=== PATIENT | male | born 1935 | race African-American/Black ===

== ENCOUNTER 2019-09-28 08:18 | Inpatient (IN) | payer MEDICARE ==
[~2019-09-28] VITALS: Ht 182.9 cm; Wt 63.0 kg
--- NOTE | 2019-09-28 08:20 | NUR ---
ED Nurse Note: Patient was BIBA from [facility] due to SOB. Patient presented anxious, AAO x4, with breathing treatment on, BP 163/63, other VSS at this time.
[2019-09-28] MEDS ORDERED: Nitroglycerin Subl 0.4mg tab SL STA (08:22)
[2019-09-28 08:25] VITALS: BP 194/72
[2019-09-28] MEDS ORDERED: Nitroglycerin 2% oint pkt TOPIC ONE (08:30)
--- NOTE | 2019-09-28 08:30 | Emergency Room Report ---
History of Present Illness General Chief Complaint: Dyspnea/Respdistress Source: Patient, EMS Present Illness HPI EMS were called to the half-way facility. The patient started having shortness of breath for 1/2-hour. Encountered wheezing. Albuterol was administered. The patient is doing somewhat better. He denies chest pain at this time. The patient recently had a pacemaker placed. Patient has a distant history of a stroke. The patient has a distant history of smoking. No fevers, chills, sore throat, palpitations, nausea, vomiting, diarrhea, dysuria, abdominal pain, joint pain, rashes, depression, anxiety, visual changes , dizziness, headache. Allergies: Coded Allergies: No Known Allergies (Unverified , 09/28/19) Patient History Past Medical History: see triage record Past Surgical History: pacemaker Social History: Denies: smoking - Distant, alcohol use, drug use Social History Narrative [facility] - born in [place] Reviewed Nursing Documentation: PMH: Agreed; PSxH: Agreed Nursing Documentation-PMH Hx Cardiac Problems: Yes - HF Hx Hypertension: Yes Hx COPD: Yes Hx Diabetes: Yes - Type 2 Hx Gastrointestinal Problems: No - Anemia Hx Cerebrovascular Accident: Yes Review of Systems All Other Systems: negative except mentioned in HPI Physical Exam Vital Signs Date Time Temp Pulse Resp B/P (MAP) Pulse Ox O2 Delivery O2 Flow Rate FiO2 09/28/19 08:12 97.5 76 18 194/72 (112) 97 Room Air Sp02 EP Interpretation: reviewed, normal General Appearance: no apparent distress, GCS 15, non-toxic, Chronically Ill Head: normocephalic Eyes: bilateral eye normal inspection, bilateral eye PERRL, bilateral eye EOMI ENT: moist mucus membranes Neck: supple Respiratory: crackles, rales, other - Pacemaker left chest Cardiovascular #1: regular rate, rhythm, no edema, JVD - Mid neck on exhalation Cardiovascular #2: 2+ radial (L) Gastrointestinal: normal inspection, normal bowel sounds, non tender, no mass, other - Slightly protuberant Genitourinary: no CVA tenderness Musculoskeletal: back normal, normal range of motion, other - osteoarthritis Neurologic: alert, motor strength/tone normal, oriented - X2, sensory intact, speech normal, other - facial assymmetry Psychiatric: mood/affect normal Skin: no rash, warm/dry, other - Recent pacemaker scar Procedures Critical Care Time Critical Care Time Total Critical Care Time: 30 min bedside evaluation and treatment excludes procedures (EKG). Reason for critical care: Congestive heart failure, positive troponin, hypertension, repeat evaluations Possible complications: hypotension, hypertension, MD, shock, arrhythmias, metabolic acidosis, end organ damage, respiratory failure. Interventions: Nitrates, Lasix, aspirin, repeat evaluations Course: Patient presented with hypertension and dyspnea with a history of congestive heart failure. Immediate treatment with nitrates and Lasix. Lab called with positive troponin. Aspirin administered. Blood pressure improved and patient improved clinically. Some hypoxia and oxygen begun. Patient pain- free. Consultations: nursing staff, EMS, admitting physician Performed by: Dr. Akers Tolerated well condition = serious Medical Decision Making Diagnostic Impression: Primary Impression: Congestive heart failure Qualified Codes: I50.23 - Acute on chronic systolic (congestive) heart failure Additional Impressions: Elevated troponin Renal insufficiency Cardiac asthma ER Course Patient presents with shortness of breath with wheezing the field and hypertension. Differential includes acute myocardial infarction, congestive heart failure, COPD exacerbation, pneumonia amongst others. Evaluation with EKG , chest x-ray and labs. Patient is placed on a surveillance system monitor. Nitroglycerin paste and nitroglycerin sublingually ordered. In addition Lasix ordered. Wheezing has improved with albuterol in the field. Hypertension needs to be closely monitored and treated. EKG sinus arrhythmia first-degree AV block nonspecific ST-T wave changes with ST inversion inferiorly and laterally suggestion of LVH. CXR CHF and effusions. Leukocytosis without left shift. Renal insufficiency. No evidence of infection at this time. Antibiotics not indicated. Called for + troponin. Aspirin given. Patient denies pain. O2 sat 88% but NAD. Oxygen begun. Patient improved with treatment. Some diuresis. Patient admitted to stepdown unit. Laboratory Tests Test 09/28/19 08:35 09/28/19 11:00 09/28/19 15:00 09/28/19 18:45 White Blood Count 12.4 K/UL (4.8-10.8) H Red Blood Count 3.41 M/UL (4.70-6.10) L Hemoglobin 10.5 G/DL (14.2-18.0) L Hematocrit 31.9 % (42.0-52.0) L Mean Corpuscular Volume 94 FL (80-99) Mean Corpuscular Hemoglobin 30.7 PG (27.0-31.0) Mean Corpuscular Hemoglobin Concent 32.8 G/DL (32.0-36.0) Red Cell Distribution Width 14.3 % (11.6-14.8) Platelet Count 187 K/UL (150-450) Mean Platelet Volume 6.2 FL (6.5-10.1) L Neutrophils (%) (Auto) 78.9 % (45.0-75.0) H Lymphocytes (%) (Auto) 13.4 % (20.0-45.0) L Monocytes (%) (Auto) 6.1 % (1.0-10.0) Eosinophils (%) (Auto) 1.3 % (0.0-3.0) Basophils (%) (Auto) 0.4 % (0.0-2.0) Sodium Level 145 MMOL/L (136-145) Potassium Level 4.5 MMOL/L (3.5-5.1) Chloride Level 109 MMOL/L (98-107) H Carbon Dioxide Level 23 MMOL/L (21-32) Anion Gap 13 mmol/L (5-15) Blood Urea Nitrogen 42 mg/dL (7-18) H Creatinine 1.9 MG/DL (0.55-1.30) H Estimate Glomerular Filtration Rate 41.1 mL/min (>60) Glucose Level 140 MG/DL (74-106) H Calcium Level 9.5 MG/DL (8.5-10.1) Total Bilirubin 0.4 MG/DL (0.2-1.0) Aspartate Amino Transferase (AST) 35 U/L (15-37) Alanine Aminotransferase (ALT) 28 U/L (12-78) Alkaline Phosphatase 64 U/L (46-116) Total Creatine Kinase 55 U/L (26-308) Troponin I 0.151 ng/mL (0.000-0.056) 0.205 ng/mL (0.000-0.056) 0.271 ng/mL (0.000-0.056) Pro-B-Type Natriuretic Peptide 05181 pg/mL (0-125) H Total Protein 7.5 G/DL (6.4-8.2) Albumin 2.2 G/DL (3.4-5.0) L Globulin 5.3 g/dL Albumin/Globulin Ratio 0.4 (1.0-2.7) L Prothrombin Time 10.5 SEC (9.30-11.50) Prothrombin Time INR 1.0 (0.9-1.1) Activated Partial Thromboplast Time 25 SEC (23-33) Urine Color Pale yellow Urine Appearance Clear Urine pH 7 (4.5-8.0) Urine Specific [place] 1.010 (1.005-1.035) Urine Protein 3+ (NEGATIVE) H Urine Glucose (UA) Negative (NEGATIVE) Urine Ketones Negative (NEGATIVE) Urine Blood Negative (NEGATIVE) Urine Nitrite Negative (NEGATIVE) Urine Bilirubin Negative (NEGATIVE) Urine Urobilinogen Normal MG/DL (0.0-1.0) Urine Leukocyte Esterase Negative (NEGATIVE) Urine RBC 0-2 /HPF (0 - 0) H Urine WBC 0-2 /HPF (0 - 0) Urine Squamous Epithelial Cells None /LPF (NONE/OCC) Urine Bacteria Few /HPF (NONE) EKG Diagnostic Results Rate: normal Rhythm: NSR ST Segments: no acute changes - Sinus arrhythmia first-degree AV block nonspecific ST-T wave changes Rhythm Strip Diag. Results EP Interpretation: yes Rhythm: NSR, no PVC's, no ectopy Chest X-Ray Diagnostic Results Chest X-Ray Diagnostic Results : Chest X-Ray Ordered: Yes # of Views/Limited/Complete: 1 View Indication: Shortness of Breath EP Interpretation: Yes Interpretation: no pneumothorax, other - Pacer congestive failure with bilateral effusions Impression: Other Electronically Signed by: Electronically signed by Johan Akers MD Last Vital Signs Date Time Temp Pulse Resp B/P (MAP) Pulse Ox O2 Delivery O2 Flow Rate FiO2 09/28/19 18:53 142/89 09/28/19 18:52 87 09/28/19 12:00 98.2 23 95 09/28/19 11:28 Nasal Cannula 2.0 Status: improved Disposition: ADMITTED INPATIENT Condition: Serious Johan Akers MD Sep 28, 2019 08:30
--- NOTE | 2019-09-28 08:52 | NUR ---
ED Nurse Note: Patient arrived with Nitro patch (1 inch) on, pt's BP 163/63, per Dr. Akers's order placed second Nitro patch 1 inch.
[2019-09-28 09:08] LABS: BASOPHILS % (AUTO) 0.4 % (0.0-2.0); EOSINOPHILS % (AUTO) 1.3 % (0.0-3.0); HEMATOCRIT 31.9 % (42.0-52.0); HEMOGLOBIN 10.5 G/DL (14.2-18.0); LYMPHOCYTES % (AUTO) 13.4 % (20.0-45.0); MEAN CORPUSCULAR VOLUME 94 FL (80-99); MONOCYTES % (AUTO) 6.1 % (1.0-10.0); NEUTROPHILS % (AUTO) 78.9 % (45.0-75.0); PLATELET COUNT 187 K/UL (150-450); RED BLOOD COUNT 3.41 M/UL (4.70-6.10); RED CELL DISTRIBUTION WIDTH 14.3 % (11.6-14.8); WHITE BLOOD COUNT 12.4 K/UL (4.8-10.8)
[2019-09-28 09:12] LABS: ANION GAP 13 mmol/L (5-15); BLOOD UREA NITROGEN 42 mg/dL (7-18); CALCIUM 9.5 MG/DL (8.5-10.1); CARBON DIOXIDE 23 MMOL/L (21-32); CHLORIDE 109 MMOL/L (98-107); CREATININE 1.9 MG/DL (0.55-1.30); POTASSIUM 4.5 MMOL/L (3.5-5.1); SODIUM 145 MMOL/L (136-145)
--- NOTE | 2019-09-28 09:17 | NUR ---
ED Nurse Note: Patient's O2 went down to 88%, placed patient on 2 L via NC.
[2019-09-28 09:19] LABS: ALANINE AMINOTRANSFERASE 28 U/L (12-78); ALBUMIN 2.2 G/DL (3.4-5.0); ALBUMIN/GLOBULIN RATIO 0.4 (1.0-2.7); ALKALINE PHOSPHATASE 64 U/L (46-116); ASPARTATE AMINO TRANSFERASE 35 U/L (15-37); BILIRUBIN,TOTAL 0.4 MG/DL (0.2-1.0); CREATINE KINASE 55 U/L (26-308)
--- NOTE | 2019-09-28 10:16 | Diagnostic Imaging Report ---
EXAM: XR Chest, 1 View CLINICAL HISTORY: DYSPNEA TECHNIQUE: Frontal view of the chest. COMPARISON: None FINDINGS: Hardware: None. Lungs/pleura: Right greater than left pleural effusions. Bibasilar atelectasis versus pneumonia. Pulmonary vasculature congestion and edema. Heart/mediastinum: Mild enlargement of the cardiomediastinal silhouette. Atherosclerotic calcifications in the aorta. Left-sided pacemaker. Soft tissues: Unremarkable. Bones: No acute fracture. Degenerative changes of the acromioclavicular joints and spine. Upper abdomen: Normal. IMPRESSION: Right greater than left pleural effusions. Bibasilar atelectasis versus pneumonia. Pulmonary vasculature congestion and edema.
[2019-09-28] MEDS ORDERED: BENADRYL25 MG ORAL (10:37)
[2019-09-28] MEDS ORDERED: AMLODIPINE BESYL5 MG ORAL (10:37)
[2019-09-28] MEDS ORDERED: CATAPRES0.1 MG ORAL (10:37)
[2019-09-28] MEDS ORDERED: INSULIN LI100 UNIT/1 SQ (10:37)
[2019-09-28] MEDS ORDERED: IPRATROPIU0.2 MG/1 M HHN (10:37)
[2019-09-28] MEDS ORDERED: ALBUTEROL2.5 MG/3 M INH (10:37)
[2019-09-28] MEDS ORDERED: FUROSEMIDE40 MG ORAL (10:37)
[2019-09-28] MEDS ORDERED: LACTULOSE20 GM/301 ORAL (10:37)
[2019-09-28] MEDS ORDERED: NORCO 5-325 TA1 EACH ORAL (10:37)
[2019-09-28] MEDS ORDERED: GUAIFENESI100 MG/5 M ORAL (10:37)
[2019-09-28] MEDS ORDERED: COLACE100 MG ORAL (10:37)
[2019-09-28] MEDS ORDERED: ACETAMINOPHEN325 M1 ORAL ×2 (10:37)
[2019-09-28] MEDS ORDERED: FEOSOL1 TAB ORAL (10:37)
--- NOTE | 2019-09-28 10:58 | NUR ---
ED Nurse Note: Patient was admited to SDU du to CHF, +trop. Patient was transfered to the unit via gurney by ACLS protocol, with all belongins. Patient AAO x4, VSS at this time, IV accsess on R thumb 22ga.
--- NOTE | 2019-09-28 11:00 | NUR ---
NURSE NOTES: Admitted patient from ED. Placed comfortably in bed. Belongings checked. On nasal cannula at 2LPM. will admit to SDU level of care.
[2019-09-28] MEDS ORDERED: NITRO-BID30 GM TD (11:37)
[2019-09-28 12:00] VITALS: BP 178/83
[2019-09-28] MEDS ORDERED: MYLANTA MAXIMU355 ML PO (12:07)
[2019-09-28] MEDS ORDERED: ZOFRAN4 M1 ORAL (12:08)
--- NOTE | 2019-09-28 13:00 | NUR ---
NURSE NOTES: Dr. Bartlett in the unit. Informed regarding WBC level. With no new order at this time.
[2019-09-28] MEDS ORDERED: Albuterol ud Inhalation HHN PRN (13:15)
[2019-09-28] MEDS ORDERED: guaiFENesin 100mg/5ml Liq ud ORAL PRN (13:15)
[2019-09-28] MEDS ORDERED: Lactulose 20gm/30ml UDC ORAL PRN (13:15)
[2019-09-28] MEDS ORDERED: Ipratropium 0.02% Inh Soln 2.5ml UD HHN PRN (13:15)
[2019-09-28] MEDS ORDERED: DiphenhydrAMINE 25mg Tab ORAL PRN (13:15)
[2019-09-28] MEDS ORDERED: HYDROcodone/Acetamin 5/325 tab ORAL PRN (13:15)
[2019-09-28] MEDS ORDERED: Albuterol/Ipratropium 3ml neb HHN PRN (13:45)
[2019-09-28] MEDS: Nitroglycerin 2% oint pkt TOPIC SCH ×2 (14:31→22:33)
[2019-09-28 15:00] VITALS: BP 142/89
--- NOTE | 2019-09-28 15:22 | NUR ---
NURSE NOTES: Venous Duplex Scan done at bedside. negative results noted for DVT.
--- NOTE | 2019-09-28 15:32 | Diagnostic Imaging Report ---
EXAM: US Duplex Bilateral Lower Extremities Veins CLINICAL HISTORY: DVT TECHNIQUE: Real-time duplex ultrasound scan of the bilateral lower extremity veins integrating B-mode two-dimensional vascular structure, Doppler spectral analysis, color flow Doppler imaging and compression. COMPARISON: No relevant prior studies available. FINDINGS: Right deep veins: Unremarkable as visualized. Normal compression and normal response to augmentation. Right superficial veins: Unremarkable as visualized. Left deep veins: Unremarkable as visualized. Normal compression and normal response to augmentation. Left superficial veins: Unremarkable as visualized. Soft tissues: No critical stenosis, occlusion, or aneurysm. IMPRESSION: No bilateral lower extremity DVT.
[2019-09-28 16:00] VITALS: BP 152/73
[2019-09-28 16:18] LABS: APPEARANCE,URINE CLEAR; BILIRUBIN, URINE NEGATIVE (NEGATIVE); COLOR,URINE PALE YELLOW; GLUCOSE, URINE (UA) NEGATIVE (NEGATIVE); KETONES,URINE NEGATIVE (NEGATIVE); LEUKOCYTE ESTERASE ,URINE NEGATIVE (NEGATIVE); NITRITE,URINE NEGATIVE (NEGATIVE); PH,URINE 7 (4.5-8.0); PROTEIN,URINE 3+ (NEGATIVE); UROBILINOGEN,URINE NORMAL MG/DL (0.0-1.0)
--- NOTE | 2019-09-28 17:40 | NUR ---
NURSE NOTES: Dr. Nguyen at bedside. Informed MD regarding rhythm strips within the shift. And that patient have pacemaker.
[2019-09-28] MEDS ORDERED: Docusate 100mg cap ORAL SCH (18:00)
--- NOTE | 2019-09-28 19:05 | NUR ---
NURSE NOTES: Pt report received from JOSH GONZALEZ. pt remains stable. pt is alert and oriented times 3, able to follow commands. pt is on 2 L NC, no signs symptoms of resp distress. pt is awake overnight monitor showing SR, no signs symptoms of acute cardiac distress. pt bed is low, locked, armed, bed rails up times 3, call light within reach. will follow plan of care.
--- NOTE | 2019-09-28 19:25 | NUR ---
HAND-OFF: Report given to Reilly Simeon RN.
--- NOTE | 2019-09-28 19:29 | NUR ---
NURSE NOTES: Spoke with Roberta GONZALEZ from [facility]. asked about any information on pts pace maker. she is unable to find any information about pace maker.
[2019-09-28 20:00] VITALS: BP 163/82
--- NOTE | 2019-09-28 20:19 | NUR ---
NURSE NOTES: Spoke with Drew Pharmacist. stated to obtain A and D oint from central supply.
[2019-09-28] MEDS: Docusate 100mg cap ORAL SCH (20:35)
[2019-09-28] MEDS: Vitamin A&D Oint Tube TOPIC SCH (20:37)
[2019-09-28] MEDS: Heparin 5000 units/ml inj SUBQ SCH (20:37)
--- NOTE | 2019-09-28 21:00 | History and Physical Report ---
DATE OF ADMISSION: 09/28/2019 REASON FOR ADMISSION: Chest pain and elevated troponin, possible non-STEMI. HISTORY OF PRESENT ILLNESS: The patient is an 84-year-old male, presents from a [facility]. The patient is noted to have some shortness of breath with noted wheezing. Albuterol given. The patient denies any chest pain at that time. The patient apparently had a recent pacemaker placed. History of mild stroke. The patient was noted to have elevated troponin and now admitted for possible non-STEMI. EKG with left ventricular hypertrophy. Chest x-ray noted CHF and effusions. The patient's care discussed and reviewed with the ER physician as well as with the nursing staff. Orders are being given. X-ray notable for pleural effusions and pulmonary vascular congestion. The patient now being admitted for ongoing management and further evaluation. PAST MEDICAL HISTORY: Notable for heart failure, COPD, diabetes, CVA per history, pacemaker per history. MEDICATIONS: Reviewed. ALLERGIES: Reviewed. SOCIAL HISTORY: Resides at a [facility] facility. Nonsmoker and nondrinker. REVIEW OF SYSTEMS: Difficult to obtain. The patient is somewhat confused. PHYSICAL EXAMINATION: GENERAL: A well-developed male, comfortable, advanced age. VITAL SIGNS: Blood pressure 163/63, 99 sat on 2 liters, heart rate 78, temperature 97.5. HEENT: Negative. Extraocular movements are grossly intact. NECK: Supple. LUNGS: Moderate breath sounds, reduced at both bases. CARDIAC: S1 and S2. Regular rate and rhythm. Slightly distant. Positive S4. ABDOMEN: Soft, nontender, and nondistended. EXTREMITIES: Mild edema. NEUROLOGIC: weak diffusely and confused. LABORATORY AND DIAGNOSTIC DATA: Laboratory data reviewed. BUN 42, creatinine 1.9. Troponin 0.205. BNP 10,667. White count 12.4, hemoglobin 10.5, platelets of 187. Chest x-ray with bilateral pleural effusions. IMPRESSION: 1. Congestive heart failure. 2. Pleural effusion. 3. Mild leukocytosis. 4. Anemia. 5. Chronic kidney disease. 6. Elevated troponin. 7. Possible non-STEMI. 8. Elevated natriuretic peptide. 9. Severe protein-calorie malnutrition. RECOMMENDATIONS: 1. Supportive care. 2. IV Lasix. 3. Serial troponins. 4. Cardiology evaluation and hold on antibiotics for now. 5. Monitor fluids and consider thoracentesis. 6. Obtain swallow evaluation and monitor closely for further changes, interventions, and stabilize and monitor in REMEDIOS for now. 7. The plan is to discharge the patient back to [facility] facility once improved. Jarod Bartlett M.D. DR: DAVID JOB#: [id number] CC: AMILCAR
--- NOTE | 2019-09-28 22:26 | NUR ---
NURSE NOTES: Pt BS finger is 147. pt remains stable.
--- NOTE | 2019-09-28 23:00 | Consultation ---
DATE OF CONSULTATION: 09/28/2019 NEPHROLOGY CONSULTATION CONSULTING PHYSICIAN: Gregory Naranjo M.D. REFERRING PHYSICIAN: Jarod Bartlett M.D. REASON FOR CONSULTATION: Elevated BUN and creatinine. HISTORY OF PRESENT ILLNESS: The patient is an 84-year-old male, who presents with shortness of breath and chest x-ray findings of pleural effusion, CHF, possible pneumonia. He has come from a [facility] and there is a history of prior DC and combined systolic and diastolic congestive heart failure, type 2 diabetes, anemia, chronic kidney disease, permanent pacemaker, history of CVA, difficulty walking, history of hypertension. He apparently was hospitalized at [facility] from 09/24/2019 to 09/26/2019 and again became acutely short of breath. He had a non-ST elevation MT at [facility] recently. ALLERGIES: None known. MEDICATIONS: Reviewed on the transfer record, as follows, Tylenol p.r.n., albuterol inhalation, amlodipine, Benadryl, clonidine, DSS, ferrous sulfate, furosemide, guanfacine, Buhler, insulin sliding scale, DuoNeb inhalation, magnesium, Mylanta, nitroglycerin, Senokot, Zofran. HABITS: He is a former smoker. PAST SURGICAL HISTORY: Include pacemaker, appendectomy, tonsillectomy, prostate cancer surgery, and cataract surgery. SYSTEM REVIEW: HEAD, EYES, EARS, NOSE, AND THROAT: He says his vision is stable now. Hearing is good. ENDOCRINE: History of diabetes as above. PULMONARY: History of COPD. CARDIAC: See history of present illness. He is not complaining of chest pain at this time. GASTROINTESTINAL: Denies GI bleeding or abdominal pain. GENITOURINARY: States he is voiding well. No urinary retention or difficulty at this time. He states he received radiation for prostate cancer. NEUROLOGIC: No history of CVA. PHYSICAL EXAMINATION: GENERAL: The patient is alert, well developed, looks younger than his stated age. VITAL SIGNS: Blood pressure 178/83, pulse ox 95, heart rate 85, temperature 98.2. HEAD, EYES, EARS, NOSE AND THROAT: Sclerae are nonicteric. Ocular motions intact in all directions. Oral mucosa moist. NECK: No adenopathy or thyroid enlargement. LUNGS: Clear at this time. HEART: Rhythm is regular. I hear no murmur. ABDOMEN: Soft without organomegaly or masses. EXTREMITIES: No edema, cyanosis, or clubbing. PERTINENT LABS: Show sodium 145, potassium 4.5, BUN 42, creatinine 1.9, estimated GFR 41. Troponin 0.151, 0.205. BNP 10,667. Albumin is 2.2. Urine shows 3+ protein. White count 12.4, hemoglobin 10.5. IMPRESSION: 1. Chronic kidney disease, likely stage 3 with proteinuria. He may have underlying diabetic nephropathy or hypertensive heart disease. 2. Congestive heart failure, systolic and diastolic, acute on chronic. 3. Anemia, likely anemia of chronic disease or kidney disease. 4. COPD exacerbation. 5. History of pacemaker. 6. History of recent DC. PLAN: I will continue diuresis. I would expect BUN and creatinine to rise somewhat with the above. We will watch him closely in view of his comorbidities. Gregory Naranjo M.D. DR: JOHN JOB#: [id number] CC:
[2019-09-29] VITALS: BP 140/63
[2019-09-29 04:00] VITALS: BP 160/77
[2019-09-29 04:16] LABS: ANION GAP 11 mmol/L (5-15); BLOOD UREA NITROGEN 47 mg/dL (7-18); CALCIUM 8.5 MG/DL (8.5-10.1); CARBON DIOXIDE 26 MMOL/L (21-32); CHLORIDE 107 MMOL/L (98-107); CREATININE 2.1 MG/DL (0.55-1.30); POTASSIUM 4.5 MMOL/L (3.5-5.1); SODIUM 144 MMOL/L (136-145)
--- NOTE | 2019-09-29 05:03 | NUR ---
NURSE NOTES: DOCTOR MIRANDA called back in regards to TROP lab value. no new order. doctor aware of troponin lab.
[2019-09-29] MEDS: Nitroglycerin 2% oint pkt TOPIC SCH ×3 (06:04→21:21)
[2019-09-29] MEDS: NovoLOG Insulin Flexpen SUBQ SCH ×4 (06:08→21:21)
[2019-09-29] MEDS ORDERED: Insulin NPH SUBQ SCH (06:30)
--- NOTE | 2019-09-29 06:30 | Consultation ---
DATE OF CONSULTATION: 09/28/2019 CARDIOLOGY CONSULTATION CONSULTING PHYSICIAN: Johan Nguyen M.D. REQUESTING PHYSICIAN: Jarod Bartlett M.D. REASON FOR CONSULTATION: Elevated troponin level. HISTORY OF PRESENT ILLNESS: This 84-year-old male, presented to the emergency room with shortness of breath. He resides at a group home facility. He has a known history of ischemic heart disease with prior myocardial infarction and history of congestive heart failure. He states he got a pacemaker implanted less than six months ago, but cannot recall where. He was hospitalized several days ago, however, at another hospital [facility] with myocardial infarction. The patient denies chest pain. His shortness of breath has improved since admission. His troponin levels have been sequentially increasing from 0.151 to 0.305 to 0.371. PAST MEDICAL HISTORY: Includes: 1. Congestive heart failure. 2. Coronary artery disease with history of myocardial infarction. 3. Type 2 diabetes mellitus. 4. COPD. 5. Cerebrovascular disease with history of cerebrovascular accident. 6. Permanent pacemaker. 7. Prostate cancer. 8. Status post appendectomy. 9. Status post cataract surgery. ALLERGIES: None known. MEDICATIONS: Prior to admission, reviewed and reconciled. SOCIAL HISTORY: Distant history of smoking. No alcohol or substance abuse. Nonsmoker at this time. REVIEW OF SYSTEMS: No fevers or chills. No cough or sputum production. He has had a prior stroke. His diabetes is managed with oral therapy. There is no known history of thyroid disorder. Cholesterol parameters are not known. There is a history of prostate cancer and prostatectomy . He does have a history of kidney disease. Baseline creatinine is not known. PHYSICAL EXAMINATION: VITAL SIGNS: Blood pressure in the emergency room was 178/83, presently 152/56, heart rate 71, respiratory rate 19, Temperature 99.5. HEENT: Normocephalic, atraumatic. Conjunctivae pink. Sclerae are anicteric. Oropharynx clear. Mucous membranes are moist. NECK: Supple. No accessory muscle use. LUNGS: With coarse breath sounds and rhonchi. CARDIAC: Regular rhythm and rate. Normal S1, S2 with a fourth heart sound and a 1/6 systolic murmur at lower left sternal border. ABDOMEN: Soft, nontender. EXTREMITIES: Good pulses. No edema. NEUROLOGIC: Moderate cognitive impairment. DIAGNOSTIC AND LABORATORY DATA: Venous duplex scan negative for DVT. Chest x-ray with right greater than left pleural effusions, atelectasis, and possible pneumonia with mild pulmonary venous congestion. EKG, AV pacing with nonspecific ST-T change. BUN 42, creatinine 1.9, sodium 145, potassium 4.5, bicarb 23. Pro-natriuretic peptide 10,667. Albumin 2.2. IMPRESSION: 1. Non ST-elevation myocardial infarction. 2. Acute on chronic systolic and diastolic congestive heart failure. 3. Permanent pacemaker. 4. Anemia of chronic kidney disease. 5. Acute on chronic kidney injury. 6. Hypertensive heart disease. 7. COPD exacerbation. 8. Healthcare-associated pneumonia. 9. Pleural effusions. PLAN: 1. Antimicrobials. 2. Diuresis. 3. Cardiac monitoring. 4. Respiratory hygiene. 5. Beta blockade. 6. DVT prophylaxis. 7. Consider thoracentesis. 8. Check lipid panel. 9. Maintain anti-platelet therapy. 10. Echocardiogram. 11. Pacemaker interrogation to be arranged - once device brand is ascertained. 12. Titrate anti-failure drugs based on clinical parameters. Johan Nguyen M.D. DR: KEV JOB#: [id number] CC: AMILCAR
--- NOTE | 2019-09-29 06:59 | NUR ---
HAND-OFF: Report given to BARRY GONZALEZ. Pt remains stable.
--- NOTE | 2019-09-29 07:10 | NUR ---
NURSE NOTES: Received report from CARLOS Grover. The patient is resting on the bed without acute distress or shortness of breath. The patient's bed in the lowest position, call light in reach, and fall and aspiration precaution reinforced. IV site intact and patent. 2L NC and saturation within normal range. The patient has left chest pacemaker and is A-paced, V-paced, or SR. Dr. Nguyen was notified regarding Troponin level. The patient is scheduled for Thoracentesis on 09/30/2019. Will continue plan of care.
[2019-09-29 08:00] VITALS: BP 146/67
[2019-09-29] MEDS: Aspirin Baby 81mg ORAL SCH (08:31)
[2019-09-29] MEDS: Docusate 100mg cap ORAL SCH ×2 (08:32→21:18)
[2019-09-29] MEDS: Heparin 5000 units/ml inj SUBQ SCH ×2 (08:34→21:00)
--- NOTE | 2019-09-29 08:45 | Pulmonology Progress Note ---
Assessment/Plan Assessment/Plan IMPRESSION: 1. Congestive heart failure. 2. Pleural effusion. bilateral 3. Mild leukocytosis. 4. Anemia. 5. Chronic kidney disease. 6. Elevated troponin. 7. Possible non-STEMI. 8. Elevated natriuretic peptide. 9. Severe protein-calorie malnutrition. PLAN venous US negative diurese cards noted renal follow up tap effusion optimize echo impression, plan, and exam edited and reviewed in detail care discussed with RN Subjective Allergies: Coded Allergies: No Known Allergies (Unverified , 09/28/19) Subjective all care reviewed and discussed comfortable overnight no chest pain some sob Objective Last 24 Hour Vital Signs Date Time Temp Pulse Resp B/P (MAP) Pulse Ox O2 Delivery O2 Flow Rate FiO2 09/29/19 08:33 56 146/67 09/29/19 08:32 56 146/67 09/29/19 06:04 131/68 09/29/19 06:04 131/68 09/29/19 04:00 98.6 57 20 160/77 (104) 99 09/29/19 04:00 62 09/29/19 00:05 152/58 09/29/19 00:00 96.7 67 19 140/63 (88) 99 09/29/19 00:00 62 09/28/19 22:33 152/56 09/28/19 20:00 99.5 71 19 163/82 (109) 98 09/28/19 20:00 62 09/28/19 18:53 142/89 09/28/19 18:52 87 142/89 09/28/19 15:21 87 09/28/19 15:00 142/89 (106) 09/28/19 14:31 178/83 09/28/19 12:00 98.2 85 23 178/83 (114) 95 09/28/19 11:58 79 09/28/19 11:28 Nasal Cannula 2.0 09/28/19 11:00 86 09/28/19 10:50 97.5 78 18 163/63 99 Nasal Cannula 2.0 09/28/19 08:46 163/63 09/28/19 08:44 163/63 Intake and Output 09/28/19 09/29/19 19:00 07:00 Intake Total 240 ml Output Total 2600 ml Balance -2360 ml Intake Oral 240 ml Output Urine Total 2600 ml # Voids 2 # Bowel Movements 2 Objective GENERAL: A well-developed male, comfortable, advanced age. HEENT: Negative. Extraocular movements are grossly intact. NECK: Supple. LUNGS: Moderate breath sounds, reduced at both bases. no rhonchi or wheeze CARDIAC: S1 and S2. Regular rate and rhythm. Slightly distant. Positive S4. ABDOMEN: Soft, nontender, and nondistended. EXTREMITIES: Mild edema. NEUROLOGIC: weak diffusely and confused. Microbiology Date/Time Source Procedure Growth Status 09/28/19 15:00 Urine,Clean Catch Urine Culture - Preliminary NO GROWTH Resulted 09/28/19 15:00 Rectum Received Laboratory Tests 09/28/19 11:00: Prothrombin Time 10.5, Prothromb Time International Ratio 1.0, Activated Partial Thromboplast Time 25, Troponin I 0.205H 09/28/19 15:00: Urine Color Pale yellow, Urine Appearance Clear, Urine pH 7, Urine Specific [place] 1.010, Urine Protein 3+H, Urine Glucose (UA) Negative, Urine Ketones Negative, Urine Blood Negative, Urine Nitrite Negative, Urine Bilirubin Negative , Urine Urobilinogen Normal, Urine Leukocyte Esterase Negative, Urine RBC 0-2H, Urine WBC 0-2, Urine Squamous Epithelial Cells None, Urine Bacteria Few 09/28/19 18:45: Troponin I 0.271H 09/29/19 03:09: Troponin I 0.271H, Sodium Level 144, Potassium Level 4.5, Chloride Level 107, Carbon Dioxide Level 26, Anion Gap 11, Blood Urea Nitrogen 47H, Creatinine 2.1H , Estimat Glomerular Filtration Rate 36.6, Glucose Level 221H, Calcium Level 8.5 Current Medications Medications (Trade) Dose Ordered Sig/Edis Route PRN Reason Start Time Stop Time Status Last Admin Dose Admin Acetaminophen (Tylenol) 650 mg Q4H PRN ORAL Mild Pain (Pain Scale 1-3) 09/28/19 13:15 10/28/19 13:14 Acetaminophen (Tylenol) 650 mg Q6H PRN ORAL temperature >100.4 F 09/28/19 13:15 10/28/19 13:14 Acetaminophen/ Hydrocodone Bitart (Maxie 5/325) 1 tab Q4H PRN ORAL For Pain 09/28/19 13:15 10/05/19 13:14 Albuterol/ Ipratropium (Albuterol/ Ipratropium) 3 ml Q6H PRN HHN Shortness of Breath 09/28/19 13:45 10/03/19 13:14 Amlodipine Besylate (Norvasc) 5 mg BID ORAL 09/28/19 18:00 10/28/19 17:59 09/29/19 08:33 Aspirin (ASA) 81 mg DAILY ORAL 09/29/19 09:00 10/29/19 08:59 09/29/19 08:31 Clonidine HCl (Catapres Tab) 0.1 mg EVERY 6 HOURS ORAL 09/28/19 18:00 10/28/19 17:59 09/29/19 06:04 Dextrose (Dextrose 50%) 25 ml Q30M PRN IV Hypoglycemia 09/28/19 21:30 10/28/19 21:29 Dextrose (Dextrose 50%) 50 ml Q30M PRN IV Hypoglycemia 09/28/19 21:30 10/28/19 21:29 Diphenhydramine HCl (Benadryl) 25 mg Q4H PRN ORAL Itching 09/28/19 13:15 10/28/19 13:14 Docusate Sodium (Colace) 100 mg EVERY 12 HOURS ORAL 09/28/19 21:00 10/28/19 17:59 09/29/19 08:32 Ferrous Sulfate (Feosol) 325 mg DAILY ORAL 09/29/19 09:00 10/29/19 08:59 09/29/19 08:32 Furosemide (Lasix) 40 mg DAILY IV 09/29/19 09:00 10/29/19 08:59 09/29/19 08:31 Guaifenesin (Robitussin) 200 mg Q4H PRN ORAL FOR COUGH 09/28/19 13:15 10/28/19 13:14 Heparin Sodium (Porcine) (Heparin 5000 units/ml) 5,000 units EVERY 12 HOURS SUBQ 09/28/19 21:00 10/28/19 20:59 09/29/19 08:34 Insulin Aspart (NovoLOG) BEFORE MEALS AND HS SUBQ 09/29/19 06:30 10/29/19 06:29 09/29/19 06:08 Lactulose (Cephulac) 20 gm Q6H PRN ORAL Constipation 09/28/19 13:15 10/28/19 13:14 Metoprolol Tartrate (Lopressor) 25 mg Q12HR ORAL 09/29/19 09:00 10/29/19 08:59 Nitroglycerin (Nitro-Bid) 1 inch EVERY 8 HOURS TOPIC 09/28/19 14:00 10/28/19 13:59 09/29/19 06:04 Ondansetron HCl (Zofran) 4 mg Q6H PRN ORAL Nausea & Vomiting 09/28/19 13:15 10/28/19 13:14 Pantoprazole (Protonix) 40 mg DAILY ORAL 09/29/19 09:00 10/29/19 08:59 09/29/19 08:34 Vitamin A/Vitamin D (A & D Oint) 1 applic BEDTIME TOPIC 09/28/19 21:00 10/28/19 20:59 09/28/19 20:37 Jarod Bartlett MD Sep 29, 2019 08:45
--- NOTE | 2019-09-29 09:30 | NUR ---
NURSE NOTES: The patient is stable without acute distress or shortness of breath. Will continue plan of care.
--- NOTE | 2019-09-29 10:40 | General Progress Note ---
Assessment/Plan Problem List: (1) Diabetes ICD Codes: E11.9 - Type 2 diabetes mellitus without complications SNOMED: 86469365 (2) Cardiac asthma ICD Codes: I50.1 - Left ventricular failure, unspecified SNOMED: 26289577 (3) Renal insufficiency ICD Codes: N28.9 - Disorder of kidney and ureter, unspecified SNOMED: 004629734, 188050757 (4) Congestive heart failure ICD Codes: I50.9 - Heart failure, unspecified SNOMED: 23980813 Qualifiers: Qualified Codes: I50.23 - Acute on chronic systolic (congestive) heart failure (5) Elevated troponin ICD Codes: R79.89 - Other specified abnormal findings of blood chemistry SNOMED: 180965630, 877790767, 988243832 Status: stable Assessment/Plan: o2 resp care antiplt rx trend trop check a1c insulin coverage renal us Subjective ROS Limited/Unobtainable: No Constitutional: Reports: malaise, weakness HEENT: Reports: no symptoms Cardiovascular: Reports: no symptoms Respiratory: Reports: no symptoms Gastrointestinal/Abdominal: Reports: no symptoms Genitourinary: Reports: no symptoms Neurologic/Psychiatric: Reports: no symptoms Endocrine: Reports: no symptoms Hematologic/Lymphatic: Reports: no symptoms Allergies: Coded Allergies: No Known Allergies (Unverified , 09/28/19) All Systems: reviewed and negative except above Subjective no complaints. feels better today. less sob. no fever or chills. labs reviewed. meds noted Objective Last 24 Hour Vital Signs Date Time Temp Pulse Resp B/P (MAP) Pulse Ox O2 Delivery O2 Flow Rate FiO2 09/29/19 08:33 56 146/67 09/29/19 08:32 56 146/67 09/29/19 08:00 97.8 56 20 146/67 (93) 100 09/29/19 08:00 62 09/29/19 06:04 131/68 09/29/19 06:04 131/68 09/29/19 04:00 98.6 57 20 160/77 (104) 99 09/29/19 04:00 62 09/29/19 00:05 152/58 09/29/19 00:00 96.7 67 19 140/63 (88) 99 09/29/19 00:00 62 09/28/19 22:33 152/56 09/28/19 20:00 99.5 71 19 163/82 (109) 98 09/28/19 20:00 62 09/28/19 18:53 142/89 09/28/19 18:52 87 142/89 09/28/19 15:21 87 09/28/19 15:00 142/89 (106) 09/28/19 14:31 178/83 09/28/19 12:00 98.2 85 23 178/83 (114) 95 09/28/19 11:58 79 09/28/19 11:28 Nasal Cannula 2.0 09/28/19 11:00 86 09/28/19 10:50 97.5 78 18 163/63 99 Nasal Cannula 2.0 Intake and Output 09/28/19 09/29/19 19:00 07:00 Intake Total 240 ml Output Total 2600 ml Balance -2360 ml Intake Oral 240 ml Output Urine Total 2600 ml # Voids 2 # Bowel Movements 2 Laboratory Tests 09/28/19 11:00: Prothrombin Time 10.5, Prothromb Time International Ratio 1.0, Activated Partial Thromboplast Time 25, Troponin I 0.205H 09/28/19 15:00: Urine Color Pale yellow, Urine Appearance Clear, Urine pH 7, Urine Specific [place] 1.010, Urine Protein 3+H, Urine Glucose (UA) Negative, Urine Ketones Negative, Urine Blood Negative, Urine Nitrite Negative, Urine Bilirubin Negative , Urine Urobilinogen Normal, Urine Leukocyte Esterase Negative, Urine RBC 0-2H, Urine WBC 0-2, Urine Squamous Epithelial Cells None, Urine Bacteria Few 09/28/19 18:45: Troponin I 0.271H 09/29/19 03:09: Troponin I 0.271H, Sodium Level 144, Potassium Level 4.5, Chloride Level 107, Carbon Dioxide Level 26, Anion Gap 11, Blood Urea Nitrogen 47H, Creatinine 2.1H , Estimat Glomerular Filtration Rate 36.6, Glucose Level 221H, Calcium Level 8.5 Height (Feet): 6 Height (Inches): 0.00 Weight (Pounds): 139 General Appearance: WD/WN, alert Neck: non-tender, normal alignment, supple Cardiovascular: normal rate, regular rhythm Respiratory/Chest: chest wall non-tender, lungs clear, normal breath sounds, no respiratory distress Abdomen: normal bowel sounds, non tender, soft, no organomegaly, no mass Edema: no edema noted Arm (L), no edema noted Arm (R), no edema noted Leg (L), no edema noted Leg (R), no edema noted Pedal (L), no edema noted Pedal (R), no edema noted Generalized Neurologic: 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
[2019-09-29 11:47] LABS: ANION GAP 9 mmol/L (5-15); BLOOD UREA NITROGEN 48 mg/dL (7-18); CALCIUM 8.5 MG/DL (8.5-10.1); CARBON DIOXIDE 27 MMOL/L (21-32); CHLORIDE 106 MMOL/L (98-107); CHOLESTEROL 131 MG/DL (< 200); CREATININE 1.8 MG/DL (0.55-1.30); HDL CHOLESTEROL 44 MG/DL (40-60); SODIUM 142 MMOL/L (136-145); TRIGLYCERIDES 49 MG/DL (30-150)
[2019-09-29 12:00] VITALS: BP 155/68
--- NOTE | 2019-09-29 12:00 | NUR ---
NURSE NOTES: Notified Dr. Nguyen regarding Troponin level today. No new order. Will continue plan of care.
[2019-09-29] MEDS: cefTRIAXone 1 GM in D5W 55 ML IVPB SCH (12:05)
--- NOTE | 2019-09-29 14:46 | Nephrology Progress Note ---
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 (6) CKD (chronic kidney disease) stage 3, GFR 30-59 ml/min (7) Diabetes Plan continue diuresis, acei or arb as long as K stable Subjective Constitutional: Reports: weakness HEENT: Reports: no symptoms Genitourinary: Reports: no symptoms Neurologic/Psychiatric: Reports: no symptoms Objective Objective Last 24 Hour Vital Signs Date Time Temp Pulse Resp B/P (MAP) Pulse Ox O2 Delivery O2 Flow Rate FiO2 09/29/19 14:04 127/60 09/29/19 12:00 98.2 60 20 155/68 (97) 100 09/29/19 12:00 Nasal Cannula 2.0 09/29/19 12:00 155/68 09/29/19 08:33 56 146/67 09/29/19 08:32 56 146/67 09/29/19 08:00 97.8 56 20 146/67 (93) 100 09/29/19 08:00 Nasal Cannula 2.0 09/29/19 08:00 62 09/29/19 06:04 131/68 09/29/19 06:04 131/68 09/29/19 04:00 98.6 57 20 160/77 (104) 99 09/29/19 04:00 62 09/29/19 00:05 152/58 09/29/19 00:00 96.7 67 19 140/63 (88) 99 09/29/19 00:00 62 09/28/19 22:33 152/56 09/28/19 20:00 99.5 71 19 163/82 (109) 98 09/28/19 20:00 62 09/28/19 18:53 142/89 09/28/19 18:52 87 142/89 09/28/19 16:00 98.1 65 21 152/73 (99) 97 09/28/19 15:21 87 09/28/19 15:00 142/89 (106) Intake and Output 09/28/19 09/29/19 19:00 07:00 Intake Total 240 ml Output Total 2600 ml Balance -2360 ml Intake Oral 240 ml Output Urine Total 2600 ml # Voids 2 # Bowel Movements 2 Laboratory Tests 09/28/19 15:00: Urine Color Pale yellow, Urine Appearance Clear, Urine pH 7, Urine Specific [place] 1.010, Urine Protein 3+H, Urine Glucose (UA) Negative, Urine Ketones Negative, Urine Blood Negative, Urine Nitrite Negative, Urine Bilirubin Negative , Urine Urobilinogen Normal, Urine Leukocyte Esterase Negative, Urine RBC 0-2H, Urine WBC 0-2, Urine Squamous Epithelial Cells None, Urine Bacteria Few 09/28/19 18:45: Troponin I 0.271H 09/29/19 03:09: Troponin I 0.271H, Sodium Level 144, Potassium Level 4.5, Chloride Level 107, Carbon Dioxide Level 26, Anion Gap 11, Blood Urea Nitrogen 47H, Creatinine 2.1H , Estimat Glomerular Filtration Rate 36.6, Glucose Level 221H, Calcium Level 8.5 09/29/19 11:00: Troponin I 0.257H, Sodium Level 142, Potassium Level 4.0, Chloride Level 106, Carbon Dioxide Level 27, Anion Gap 9, Blood Urea Nitrogen 48H, Creatinine 1.8H, Estimat Glomerular Filtration Rate 43.6, Glucose Level 204H, Calcium Level 8.5, Hemoglobin A1c 6.5H, Triglycerides Level 49, Cholesterol Level 131, LDL Cholesterol 78, HDL Cholesterol 44, Cholesterol/HDL Ratio 3.0L, Thyroid Stimulating Hormone (TSH) 3.316 Height (Feet): 6 Height (Inches): 0.00 Weight (Pounds): 139 General Appearance: no apparent distress, alert EENT: normal ENT inspection Neck: normal alignment Cardiovascular: normal rate, regular rhythm Respiratory/Chest: lungs clear Extremities: no edema 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
[2019-09-29] MEDS: Irbesartan 150mg tablet ORAL SCH (15:00)
[2019-09-29 16:00] VITALS: BP 159/73
--- NOTE | 2019-09-29 16:00 | Consultation ---
DATE OF CONSULTATION: 09/29/2019 INFECTIOUS DISEASE CONSULTATION CONSULTING PHYSICIAN: Dann Kingsley M.D. REFERRING PHYSICIAN: Jarod Bartlett M.D. REASON FOR CONSULTATION: Pneumonia. HISTORY OF PRESENT ILLNESS: This is an 84-year-old gentleman with history of diabetes, hypertension, COPD, congestive heart failure, and CVA, who came in with congestion and pleural effusion. There was a concern for pneumonia and an Infectious Disease consultation has been obtained for antibiotics. PAST MEDICAL HISTORY: 1. History of diabetes. 2. Hypertension. 3. Congestive heart failure. 4. CVA. 5. Status post pacemaker placement. SOCIAL HISTORY: He does not smoke, drink, or use drugs. FAMILY HISTORY: Noncontributory. REVIEW OF SYSTEMS: RESPIRATORY: No fever, chills, cough, shortness of breath or chest pain. CARDIAC: No chest pain. No palpitations. No dizziness. No syncope. GASTROINTESTINAL: No nausea. No vomiting. No abdominal pain or diarrhea. MEDICATIONS: As an inpatient, he is on ferrous sulfate, furosemide, Protonix, metoprolol, aspirin, insulin, vitamin A and B, subcutaneous heparin, docusate, amlodipine, clonidine, nitroglycerin, albuterol and ipratropium, Tylenol, Benadryl, Robitussin, [place], lactulose, and Zofran. ALLERGIES: No known drug allergies. PHYSICAL EXAMINATION: VITAL SIGNS: Temperature 98.6, T-max of 99.5, pulse 56, respiratory rate 20, and blood pressure 146/67. O2 saturation of 99%. HEENT: Pupils are equally reactive to light and accommodation. Mouth appears clean without thrush. NECK: Supple. No adenopathy. No JVD. CARDIOVASCULAR: Regular rate and rhythm. No murmurs. LUNGS: Clear to auscultation bilaterally. No crackles. No wheezes. ABDOMEN: Soft and nontender. No organomegaly. EXTREMITIES: No cyanosis, no clubbing, no edema. LABORATORY AND DIAGNOSTIC DATA: White count of 12.4, hemoglobin 10.5, hematocrit 31.9, MCV 94, platelet count of 187,000 with neutrophils of 78%. Sodium 144, potassium 4.5, chloride 107, bicarb 26, BUN 47, creatinine 2.1. Glucose 221. Calcium 8.5. Troponin 0.27. Total bilirubin 0.4, AST 35, ALT 28, and alkaline phosphatase 64. CK of 55. Total protein 7.5, albumin 2.2. UA showing 0 to 2 white cells. Urine cultures are negative. Chest x-ray showing right greater than left-sided pleural effusion, bibasilar atelectasis versus pneumonia. Pulmonary congestion and edema noted. Ultrasound of legs showed no evidence of DVT. ASSESSMENT: This is an 84-year-old gentleman with history of diabetes, hypertension, CVA, and chronic obstructive pulmonary disease, who comes in with congestion and is found to have, 1. Possible pneumonia. 2. Congestive heart failure. 3. Pleural effusion. 4. Fever, improving. 5. Possible myocardial infarction. PLAN: 1. We will order sputum for Gram stain and culture. 2. We will start the patient on ceftriaxone. 3. We will follow up cultures and adjust antibiotics accordingly. I would like to thank Dr. Bartlett for this consultation. Dann Kingsley M.D. DR: PARVEEN JOB#: [id number] CC:
--- NOTE | 2019-09-29 16:00 | NUR ---
NURSE NOTES: The patient is stable without acute distress or shortness of breath. The patient is on 2L NC and saturation within normal range. Will continue plan of care.
--- NOTE | 2019-09-29 19:05 | NUR ---
NURSE NOTES: Pt report received from Bhakti GONZALEZ. pt remains stable. pt is alert and oriented times 4, able to follow commands. pt is on 2L NC able to sat at 98%, no acute signs symptoms of Resp distress. 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 pt bed is low, locked, armed, call light within reach, bed rails up times 3. will follow plan of care.
--- NOTE | 2019-09-29 19:20 | NUR ---
HAND-OFF: Report given to CARLOS Grover. The patient is resting on the bed without acute distress or shortness of breath. The patient's bed in the lowest position, call light in reach, and fall and aspiration precaution reinfoced. IV site intact and patent. 2L NC per order,and oxygen saturation within normal range. Endorsed plan of care.
[2019-09-29 20:00] VITALS: BP 153/71
--- NOTE | 2019-09-29 20:10 | NUR ---
NURSE NOTES: Pt signed Thoracentesis Consent under Doctor Bartlett. consent filed in pts chart.
[2019-09-29] MEDS: Vitamin A&D Oint Tube TOPIC SCH (21:19)
--- NOTE | 2019-09-29 23:00 | Progress Note ---
DATE: 09/29/2019 CARDIOLOGY PROGRESS NOTE SUBJECTIVE: Less congested and short of breath. Monitored rhythm, sinus with atrial ectopy. OBJECTIVE: VITAL SIGNS: Blood pressure 146/67, pulse 56, and respirations 20. Monitor, AV paced. LUNGS: Bilateral breath sounds. Few rhonchi. CARDIAC: Regular rhythm and rate. Normal S1 and S2. A 1/6 systolic murmur at apex. ABDOMEN: Soft. EXTREMITIES: Trace edema. LABORATORY DATA: White count 12.4, hemoglobin 10.5. Potassium 4, BUN 48, creatinine 1.8. Troponin 0.257. TSH 3.3. LDL 78. IMPRESSION: 1. lipid panel. 2. Acute non ST-elevation myocardial infarction. 3. Acute on chronic renal failure, improved 4. Paroxysmal atrial ectopy. 5. Permanent pacemaker. 6. Acute on chronic systolic and diastolic congestive heart failure. 7. Hypertensive heart disease. 8. Pleural effusion. 9. Healthcare-associated pneumonia. PLAN: 1. Cautious diuresis. 2. Antimicrobials. 3. Respiratory hygiene. 4. Continue beta-maggy. 5. Consider thoracentesis. 6. Maintain current anti-lipid regimen. 7. Continue anti-platelet drug. 8. Followup echocardiogram with result. 9. Pacemaker interrogation to be arranged once device brand is ascertained. Johan Nguyen M.D. DR: BEKAH JOB#: [id number] CC:
[2019-09-30] VITALS: BP 154/76
[2019-09-30 04:00] VITALS: BP 129/63
[2019-09-30 05:17] LABS: ANION GAP 7 mmol/L (5-15); BLOOD UREA NITROGEN 47 mg/dL (7-18); CALCIUM 8.7 MG/DL (8.5-10.1); CARBON DIOXIDE 29 MMOL/L (21-32); CHLORIDE 106 MMOL/L (98-107); CREATININE 1.9 MG/DL (0.55-1.30); POTASSIUM 3.8 MMOL/L (3.5-5.1); SODIUM 142 MMOL/L (136-145)
[2019-09-30] MEDS: NovoLOG Insulin Flexpen SUBQ SCH ×4 (05:48→20:49)
[2019-09-30] MEDS: Nitroglycerin 2% oint pkt TOPIC SCH ×2 (06:01→13:24)
--- NOTE | 2019-09-30 06:59 | NUR ---
HAND-OFF: Report given to BARRY GONZALEZ. Pt remains stable.
--- NOTE | 2019-09-30 07:04 | NUR ---
NURSE NOTES: urine collected, sent down to lab.
--- NOTE | 2019-09-30 07:10 | NUR ---
NURSE NOTES: Received report from CARLOS Grover. The patient is resting on the bed without acute distress or shortness of breath. The patient's bed in the lowest position, call light in reach, and fall and aspiration precaution reinforced. IV site intact and patent. The patient is on 2L NC and saturation within normal range. The patient is scheduled for US guided thoracentesis on 09/30/2019. Will continue plan of care.
--- NOTE | 2019-09-30 07:26 | General Progress Note ---
Assessment/Plan Problem List: (1) Diabetes ICD Codes: E11.9 - Type 2 diabetes mellitus without complications SNOMED: 18667671 (2) Cardiac asthma ICD Codes: I50.1 - Left ventricular failure, unspecified SNOMED: 04851587 (3) Renal insufficiency ICD Codes: N28.9 - Disorder of kidney and ureter, unspecified SNOMED: 905600207, 248959341 (4) Congestive heart failure ICD Codes: I50.9 - Heart failure, unspecified SNOMED: 49217937 Qualifiers: Qualified Codes: I50.23 - Acute on chronic systolic (congestive) heart failure (5) Elevated troponin ICD Codes: R79.89 - Other specified abnormal findings of blood chemistry SNOMED: 071630031, 784046139, 991019728 Status: stable Assessment/Plan: o2 resp care antiplt rx trend trop a1c well controlled renal us monitor labs dvt/stress ulcer prophylaxis Subjective ROS Limited/Unobtainable: No Constitutional: Reports: malaise, weakness HEENT: Reports: no symptoms Cardiovascular: Reports: no symptoms Respiratory: Reports: cough Gastrointestinal/Abdominal: Reports: no symptoms Genitourinary: Reports: no symptoms Neurologic/Psychiatric: Reports: no symptoms Endocrine: Reports: no symptoms Hematologic/Lymphatic: Reports: no symptoms Allergies: Coded Allergies: No Known Allergies (Unverified , 09/28/19) All Systems: reviewed and negative except above Subjective no complaints. feels better today. less sob. no fever or chills. labs reviewed. meds noted. Cr stable. Objective Last 24 Hour Vital Signs Date Time Temp Pulse Resp B/P (MAP) Pulse Ox O2 Delivery O2 Flow Rate FiO2 09/30/19 06:01 141/67 09/30/19 06:01 141/67 09/30/19 04:00 98.0 60 20 129/63 (85) 98 09/30/19 04:00 62 09/30/19 04:00 Nasal Cannula 2.0 09/30/19 00:00 Nasal Cannula 2.0 09/30/19 00:00 61 09/30/19 00:00 98.6 60 20 154/76 (102) 99 09/29/19 23:13 160/73 09/29/19 21:21 164/85 09/29/19 21:19 61 164/85 3/1/20 20:00 98.4 60 20 153/71 (98) 99 09/29/19 20:00 62 09/29/19 20:00 Nasal Cannula 2.0 09/29/19 17:35 61 159/73 09/29/19 17:35 159/73 09/29/19 16:00 60 09/29/19 16:00 98.2 60 20 159/73 (101) 97 09/29/19 16:00 Nasal Cannula 2.0 09/29/19 15:00 127/60 09/29/19 14:04 127/60 09/29/19 12:00 60 09/29/19 12:00 98.2 60 20 155/68 (97) 100 09/29/19 12:00 Nasal Cannula 2.0 09/29/19 12:00 155/68 09/29/19 08:33 56 146/67 09/29/19 08:32 56 146/67 09/29/19 08:00 97.8 56 20 146/67 (93) 100 09/29/19 08:00 Nasal Cannula 2.0 09/29/19 08:00 62 Intake and Output 09/29/19 09/30/19 19:00 07:00 Output Total 700 ml Balance -700 ml Output Urine Total 700 ml Laboratory Tests 09/29/19 11:00: Sodium Level 142, Potassium Level 4.0, Chloride Level 106, Carbon Dioxide Level 27, Anion Gap 9, Blood Urea Nitrogen 48H, Creatinine 1.8H, Estimat Glomerular Filtration Rate 43.6, Glucose Level 204H, Hemoglobin A1c 6.5H, Calcium Level 8.5 , Troponin I 0.257H, Triglycerides Level 49, Cholesterol Level 131, LDL Cholesterol 78, HDL Cholesterol 44, Cholesterol/HDL Ratio 3.0L, Thyroid Stimulating Hormone (TSH) 3.316 09/30/19 03:35: Sodium Level 142, Potassium Level 3.8, Chloride Level 106, Carbon Dioxide Level 29, Anion Gap 7, Blood Urea Nitrogen 47H, Creatinine 1.9H, Estimat Glomerular Filtration Rate 41.1, Glucose Level 184H, Calcium Level 8.7 Height (Feet): 6 Height (Inches): 0.00 Weight (Pounds): 139 General Appearance: WD/WN, alert Neck: non-tender, normal alignment, supple Cardiovascular: normal rate, regular rhythm Respiratory/Chest: chest wall non-tender, lungs clear, normal breath sounds, no respiratory distress, no accessory muscle use Abdomen: normal bowel sounds, non tender, soft, no organomegaly Edema: no edema noted Arm (L), no edema noted Arm (R), no edema noted Leg (L), no edema noted Leg (R), no edema noted Pedal (L), no edema noted Pedal (R), no edema noted 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
[2019-09-30 08:00] VITALS: BP 148/64
[2019-09-30] MEDS: Aspirin Baby 81mg ORAL SCH (08:08)
[2019-09-30] MEDS: Docusate 100mg cap ORAL SCH ×2 (08:09→20:46)
[2019-09-30] MEDS: Irbesartan 150mg tablet ORAL SCH (08:09)
[2019-09-30] MEDS: Heparin 5000 units/ml inj SUBQ SCH ×2 (08:11→20:47)
--- NOTE | 2019-09-30 08:34 | Pulmonology Progress Note ---
Assessment/Plan Assessment/Plan IMPRESSION: 1. Congestive heart failure. 2. Pleural effusion. bilateral 3. Mild leukocytosis. 4. Anemia. 5. Chronic kidney disease. 6. Elevated troponin. 7. Possible non-STEMI. 8. Elevated natriuretic peptide. 9. Severe protein-calorie malnutrition. PLAN diurese cards noted renal follow up tap effusion today optimize echo pending impression, plan, and exam edited and reviewed in detail care discussed with RN Subjective Allergies: Coded Allergies: No Known Allergies (Unverified , 09/28/19) Subjective all care reviewed and discussed comfortable overnight no chest pain some sob Objective Last 24 Hour Vital Signs Date Time Temp Pulse Resp B/P (MAP) Pulse Ox O2 Delivery O2 Flow Rate FiO2 09/30/19 08:10 61 148/64 09/30/19 08:10 61 148/64 09/30/19 08:09 148/64 09/30/19 06:01 141/67 09/30/19 06:01 141/67 09/30/19 04:00 98.0 60 20 129/63 (85) 98 09/30/19 04:00 62 09/30/19 04:00 Nasal Cannula 2.0 09/30/19 00:00 Nasal Cannula 2.0 09/30/19 00:00 61 09/30/19 00:00 98.6 60 20 154/76 (102) 99 09/29/19 23:13 160/73 09/29/19 21:21 164/85 09/29/19 21:19 61 164/85 09/29/19 20:00 98.4 60 20 153/71 (98) 99 09/29/19 20:00 62 09/29/19 20:00 Nasal Cannula 2.0 09/29/19 17:35 61 159/73 09/29/19 17:35 159/73 09/29/19 16:00 60 09/29/19 16:00 98.2 60 20 159/73 (101) 97 09/29/19 16:00 Nasal Cannula 2.0 09/29/19 15:00 127/60 09/29/19 14:04 127/60 09/29/19 12:00 60 09/29/19 12:00 98.2 60 20 155/68 (97) 100 09/29/19 12:00 Nasal Cannula 2.0 09/29/19 12:00 155/68 Intake and Output 09/29/19 09/30/19 19:00 07:00 Output Total 700 ml Balance -700 ml Output Urine Total 700 ml Objective GENERAL: A well-developed male, comfortable, advanced age. HEENT: Negative. Extraocular movements are grossly intact. NECK: Supple. LUNGS: Moderate breath sounds, reduced at both bases. no rhonchi or wheeze CARDIAC: S1 and S2. Regular rate and rhythm. Slightly distant. Positive S4. ABDOMEN: Soft, nontender, and nondistended. EXTREMITIES: Mild edema. NEUROLOGIC: weak diffusely and confused. Microbiology Date/Time Source Procedure Growth Status 09/28/19 15:00 Urine,Clean Catch Urine Culture - Preliminary Mixed Gram Positive Organism Resulted 09/28/19 15:00 Rectum VRE Culture - Final Enterococcus Faecium - Vre Complete 09/28/19 15:00 Rectum - Final NO CARBAPENEM-RESISTANT ENTEROBACTERI... Complete Laboratory Tests 09/29/19 11:00: Sodium Level 142, Potassium Level 4.0, Chloride Level 106, Carbon Dioxide Level 27, Anion Gap 9, Blood Urea Nitrogen 48H, Creatinine 1.8H, Estimat Glomerular Filtration Rate 43.6, Glucose Level 204H, Hemoglobin A1c 6.5H, Calcium Level 8.5 , Troponin I 0.257H, Triglycerides Level 49, Cholesterol Level 131, LDL Cholesterol 78, HDL Cholesterol 44, Cholesterol/HDL Ratio 3.0L, Thyroid Stimulating Hormone (TSH) 3.316 09/30/19 03:35: Sodium Level 142, Potassium Level 3.8, Chloride Level 106, Carbon Dioxide Level 29, Anion Gap 7, Blood Urea Nitrogen 47H, Creatinine 1.9H, Estimat Glomerular Filtration Rate 41.1, Glucose Level 184H, Calcium Level 8.7 Current Medications Medications (Trade) Dose Ordered Sig/Edis Route PRN Reason Start Time Stop Time Status Last Admin Dose Admin Acetaminophen (Tylenol) 650 mg Q4H PRN ORAL Mild Pain (Pain Scale 1-3) 09/28/19 13:15 10/28/19 13:14 Acetaminophen (Tylenol) 650 mg Q6H PRN ORAL temperature >100.4 F 09/28/19 13:15 10/28/19 13:14 Acetaminophen/ Hydrocodone Bitart ([place] 5/325) 1 tab Q4H PRN ORAL For Pain 09/28/19 13:15 10/05/19 13:14 Albuterol/ Ipratropium (Albuterol/ Ipratropium) 3 ml Q6H PRN HHN Shortness of Breath 09/28/19 13:45 10/03/19 13:14 Amlodipine Besylate (Norvasc) 5 mg BID ORAL 09/29/19 18:00 10/29/19 17:59 09/30/19 08:10 Aspirin (ASA) 81 mg DAILY ORAL 09/29/19 09:00 10/29/19 08:59 09/29/19 08:31 Ceftriaxone Sodium 1 gm/ Dextrose 55 ml @ 110 mls/hr Q24H IVPB 09/29/19 12:00 10/06/19 11:59 09/29/19 12:05 Clonidine HCl (Catapres Tab) 0.1 mg EVERY 6 HOURS ORAL 09/28/19 18:00 10/28/19 17:59 09/30/19 06:01 Dextrose (Dextrose 50%) 25 ml Q30M PRN IV Hypoglycemia 09/28/19 21:30 10/28/19 21:29 Dextrose (Dextrose 50%) 50 ml Q30M PRN IV Hypoglycemia 09/28/19 21:30 10/28/19 21:29 Diphenhydramine HCl (Benadryl) 25 mg Q4H PRN ORAL Itching 09/28/19 13:15 10/28/19 13:14 Docusate Sodium (Colace) 100 mg EVERY 12 HOURS ORAL 09/28/19 21:00 10/28/19 17:59 09/30/19 08:09 Ferrous Sulfate (Feosol) 325 mg DAILY ORAL 09/29/19 09:00 10/29/19 08:59 09/30/19 08:09 Furosemide (Lasix) 40 mg DAILY IV 09/29/19 09:00 10/29/19 08:59 09/30/19 08:08 Guaifenesin (Robitussin) 200 mg Q4H PRN ORAL FOR COUGH 09/28/19 13:15 10/28/19 13:14 Heparin Sodium (Porcine) (Heparin 5000 units/ml) 5,000 units EVERY 12 HOURS SUBQ 09/28/19 21:00 10/28/19 20:59 09/29/19 08:34 Insulin Aspart (NovoLOG) BEFORE MEALS AND HS SUBQ 09/29/19 06:30 10/29/19 06:29 09/29/19 21:21 Irbesartan (Avapro) 150 mg DAILY ORAL 09/29/19 15:00 10/29/19 14:59 09/30/19 08:09 Lactulose (Cephulac) 20 gm Q6H PRN ORAL Constipation 09/28/19 13:15 10/28/19 13:14 Metoprolol Tartrate (Lopressor) 25 mg Q12HR ORAL 09/29/19 09:00 10/29/19 08:59 09/30/19 08:10 Nitroglycerin (Nitro-Bid) 1 inch EVERY 8 HOURS TOPIC 09/28/19 14:00 10/28/19 13:59 09/30/19 06:01 Ondansetron HCl (Zofran) 4 mg Q6H PRN ORAL Nausea & Vomiting 09/28/19 13:15 10/28/19 13:14 Pantoprazole (Protonix) 40 mg DAILY ORAL 09/29/19 09:00 10/29/19 08:59 09/30/19 08:11 Vitamin A/Vitamin D (A & D Oint) 1 applic BEDTIME TOPIC 09/28/19 21:00 10/28/19 20:59 09/29/19 21:19 Jarod Bartlett MD Sep 30, 2019 08:34
--- NOTE | 2019-09-30 10:34 | NUR ---
ST NOTES: REFERRAL FOR SWALLOWING EVALUATION RECEIVED. CHART REVIEWED. PER BARRY GONZALEZ, NO APPARENT S/S OF ASPIRATION WITH WHOLE MEDS AND WATER BUT PATIENT HAS SILENT ASPIRATION GIVEN H/O CVA AND COPD. PATIENT IS NPO FOR A PROCEDURE. BARRY GONZALEZ, TO CALL ME WHEN PATIENT IS AVAILABLE FOR SWALLOWING EVALUATION.
--- NOTE | 2019-09-30 10:40 | Infectious Diseases Prog Note ---
Assessment/Plan Assessment/Plan antibiotics : ceftriaxone A 1. pneumonia 2. renal failure 3. diabetes mellitus 4. hypertension 5. COPD 6. pleural effusion 7. CHF P 1. continue ceftriaxone 2. will follow up cultures Subjective Constitutional: Denies: fever, chills Respiratory: Denies: shortness of breath, dry cough Gastrointestinal/Abdominal: Denies: nausea, vomiting, diarrhea Musculoskeletal: Denies: pain Allergies: Coded Allergies: No Known Allergies (Unverified , 09/28/19) Objective Vital Signs Last 24 Hour Vital Signs Date Time Temp Pulse Resp B/P (MAP) Pulse Ox O2 Delivery O2 Flow Rate FiO2 09/30/19 08:10 61 148/64 09/30/19 08:10 61 148/64 09/30/19 08:09 148/64 09/30/19 08:00 60 09/30/19 08:00 98.4 61 20 148/64 (92) 97 09/30/19 08:00 Nasal Cannula 2.0 09/30/19 06:01 141/67 09/30/19 06:01 141/67 09/30/19 04:00 98.0 60 20 129/63 (85) 98 09/30/19 04:00 62 09/30/19 04:00 Nasal Cannula 2.0 09/30/19 00:00 Nasal Cannula 2.0 09/30/19 00:00 61 09/30/19 00:00 98.6 60 20 154/76 (102) 99 09/29/19 23:13 160/73 09/29/19 21:21 164/85 09/29/19 21:19 61 164/85 09/29/19 20:00 98.4 60 20 153/71 (98) 99 09/29/19 20:00 62 09/29/19 20:00 Nasal Cannula 2.0 09/29/19 17:35 61 159/73 09/29/19 17:35 159/73 09/29/19 16:00 60 09/29/19 16:00 98.2 60 20 159/73 (101) 97 09/29/19 16:00 Nasal Cannula 2.0 09/29/19 15:00 127/60 09/29/19 14:04 127/60 09/29/19 12:00 60 09/29/19 12:00 98.2 60 20 155/68 (97) 100 09/29/19 12:00 Nasal Cannula 2.0 09/29/19 12:00 155/68 Height (Feet): 6 Height (Inches): 0.00 Weight (Pounds): 139 Respiratory/Chest: lungs clear Cardiovascular: normal rate, regular rhythm, no gallop/murmur Abdomen: soft, non tender Extremities: no edema Microbiology Date/Time Source Procedure Growth Status 09/28/19 15:00 Nasal Nares MRSA Culture - Final NO METHICILLIN RESISTANT STAPH AUREUS... Complete 09/28/19 15:00 Urine,Clean Catch Urine Culture - Preliminary Mixed Gram Positive Organism Resulted 09/28/19 15:00 Rectum VRE Culture - Final Enterococcus Faecium - Vre Complete 09/28/19 15:00 Rectum - Final NO CARBAPENEM-RESISTANT ENTEROBACTERI... Complete Laboratory Tests Test 09/29/19 11:00 09/30/19 03:35 09/30/19 07:55 Sodium Level 142 MMOL/L (136-145) 142 MMOL/L (136-145) Potassium Level 4.0 MMOL/L (3.5-5.1) 3.8 MMOL/L (3.5-5.1) Chloride Level 106 MMOL/L (98-107) 106 MMOL/L (98-107) Carbon Dioxide Level 27 MMOL/L (21-32) 29 MMOL/L (21-32) Anion Gap 9 mmol/L (5-15) 7 mmol/L (5-15) Blood Urea Nitrogen 48 mg/dL (7-18) H 47 mg/dL (7-18) H Creatinine 1.8 MG/DL (0.55-1.30) H 1.9 MG/DL (0.55-1.30) H Estimat Glomerular Filtration Rate 43.6 mL/min (>60) 41.1 mL/min (>60) Glucose Level 204 MG/DL (74-106) H 184 MG/DL (74-106) H Hemoglobin A1c 6.5 % (4.3-6.0) H Calcium Level 8.5 MG/DL (8.5-10.1) 8.7 MG/DL (8.5-10.1) Troponin I 0.257 ng/mL (0.000-0.056) Triglycerides Level 49 MG/DL (30-150) Cholesterol Level 131 MG/DL (< 200) LDL Cholesterol 78 mg/dL (<100) HDL Cholesterol 44 MG/DL (40-60) Cholesterol/HDL Ratio 3.0 (3.3-4.4) L Thyroid Stimulating Hormone (TSH) 3.316 uiU/mL (0.358-3.740) Prothrombin Time 11.1 SEC (9.30-11.50) Prothromb Time International Ratio 1.0 (0.9-1.1) Activated Partial Thromboplast Time 28 SEC (23-33) Current Medications Medications (Trade) Dose Ordered Sig/Edis Route PRN Reason Start Time Stop Time Status Last Admin Dose Admin Acetaminophen (Tylenol) 650 mg Q4H PRN ORAL Mild Pain (Pain Scale 1-3) 09/28/19 13:15 10/28/19 13:14 Acetaminophen (Tylenol) 650 mg Q6H PRN ORAL temperature >100.4 F 09/28/19 13:15 10/28/19 13:14 Acetaminophen/ Hydrocodone Bitart ([place] 5/325) 1 tab Q4H PRN ORAL For Pain 09/28/19 13:15 10/05/19 13:14 Albuterol/ Ipratropium (Albuterol/ Ipratropium) 3 ml Q6H PRN HHN Shortness of Breath 09/28/19 13:45 10/03/19 13:14 Amlodipine Besylate (Norvasc) 5 mg BID ORAL 09/29/19 18:00 10/29/19 17:59 09/30/19 08:10 Aspirin (ASA) 81 mg DAILY ORAL 09/29/19 09:00 10/29/19 08:59 09/29/19 08:31 Ceftriaxone Sodium 1 gm/ Dextrose 55 ml @ 110 mls/hr Q24H IVPB 09/29/19 12:00 10/06/19 11:59 09/29/19 12:05 Clonidine HCl (Catapres Tab) 0.1 mg EVERY 6 HOURS ORAL 09/28/19 18:00 10/28/19 17:59 09/30/19 06:01 Dextrose (Dextrose 50%) 25 ml Q30M PRN IV Hypoglycemia 09/28/19 21:30 10/28/19 21:29 Dextrose (Dextrose 50%) 50 ml Q30M PRN IV Hypoglycemia 09/28/19 21:30 10/28/19 21:29 Diphenhydramine HCl (Benadryl) 25 mg Q4H PRN ORAL Itching 09/28/19 13:15 10/28/19 13:14 Docusate Sodium (Colace) 100 mg EVERY 12 HOURS ORAL 09/28/19 21:00 10/28/19 17:59 09/30/19 08:09 Ferrous Sulfate (Feosol) 325 mg DAILY ORAL 09/29/19 09:00 10/29/19 08:59 09/30/19 08:09 Furosemide (Lasix) 40 mg DAILY IV 09/29/19 09:00 10/29/19 08:59 09/30/19 08:08 Guaifenesin (Robitussin) 200 mg Q4H PRN ORAL FOR COUGH 09/28/19 13:15 10/28/19 13:14 Heparin Sodium (Porcine) (Heparin 5000 units/ml) 5,000 units EVERY 12 HOURS SUBQ 09/28/19 21:00 10/28/19 20:59 09/29/19 08:34 Insulin Aspart (NovoLOG) BEFORE MEALS AND HS SUBQ 09/29/19 06:30 10/29/19 06:29 09/29/19 21:21 Irbesartan (Avapro) 150 mg DAILY ORAL 09/29/19 15:00 10/29/19 14:59 09/30/19 08:09 Lactulose (Cephulac) 20 gm Q6H PRN ORAL Constipation 09/28/19 13:15 10/28/19 13:14 Metoprolol Tartrate (Lopressor) 25 mg Q12HR ORAL 09/29/19 09:00 10/29/19 08:59 09/30/19 08:10 Nitroglycerin (Nitro-Bid) 1 inch EVERY 8 HOURS TOPIC 09/28/19 14:00 10/28/19 13:59 09/30/19 06:01 Ondansetron HCl (Zofran) 4 mg Q6H PRN ORAL Nausea & Vomiting 09/28/19 13:15 10/28/19 13:14 Pantoprazole (Protonix) 40 mg DAILY ORAL 09/29/19 09:00 10/29/19 08:59 09/30/19 08:11 Vitamin A/Vitamin D (A & D Oint) 1 applic BEDTIME TOPIC 09/28/19 21:00 10/28/19 20:59 09/29/19 21:19 Dann Kingsley MD Sep 30, 2019 10:40
[2019-09-30 12:00] VITALS: BP 157/73
[2019-09-30] MEDS: cefTRIAXone 1 GM in D5W 55 ML IVPB SCH (12:08)
--- NOTE | 2019-09-30 12:17 | Diagnostic Imaging Report ---
Indication:pleural effusion Technique: Grayscale and duplex Doppler imaging of the chest performed. Comparison: None Findings: Trace right pleural effusion noted. This is not enough to warrant thoracentesis. There is no pleural fluid on the left. IMPRESSION: Trace right pleural effusion
--- NOTE | 2019-09-30 12:20 | NUR ---
ST NOTES: REFERRED FOR SWALLOW EVALUATION BY DR COPE, SEE FULL REPORT DYSPHAGIA RISK FACTORS FOR THIS 84 Y.O.M.: ACUTE ISSUES: RESP DISTRES AND NEEDED BIPAP, SOB AND WHEEZING, PNA VERSUS BIBASILAR ATELECTASIS, BILATERAL PLEURAL EFFUSIONS, LUNG CRACKLES/RALES, NOW ON 2 LITERS NC GGOD SP02 97-99%, RESP RATE 20, COPD EXACERBATION. H/O DISTANT CVA, GERD, SMOKING, COPD, CKD, PROSTATE CA, DM2, CARDIAC D/O. PER POLST OK TO HAVE TUBE FEEDINGS IF NEEDS. AT SNF ON A ANN AND CARB CONTROLLED REGULAR DIET AND THIN LIQUIDS WITH LARGE PORTIONS. NOW ON A CARDIAC AND CCHO-MED DIET AND THIN LIQUIDS WITH GOOD INTAKE. PER BARRY GONZALEZ, NO OVERT S/S OF ASPIRATION WITH WHOLE MEDS AND THIN LIQUIDS. PATIENT IS ALERT AND ABLE TO EXPRESS NEEDS. DENIES ANY SWALLOWING PROBLEMS. HAS MOST OF HIS LOWER DENTITION BUT MISSING MANY UPPER TEETH AND PARTIAL UPPER AT HOME (SON WILL BRING WITH GALLERY INTERN WHEN ABLE). ORIENTED X4. INITIAL IMPRESSIONS: RISK FOR A DYSPHAGIA BUT APPEARS TO HAVE A GROSSLY FUNCTIONAL SWALLOW ADEQUATE OROMOTOR SKILLS, COUGH, AND VOICE/SPEECH SKILLS. GIVEN THIN LIQUIDS VIA STRAW SEQUENTIAL SIPS, NO OVERT S/S OF ASPIRATION BUT WOULD ONLY TAKE A FEW SIPS (DISLIKES WATER FOR [place] SWALLOW PROTOCOL). GIVEN PUREED TSP AND MASTICATED SOLID (1/2 CRACKER) GROSSLY FUNCTIONAL SWALLOW. GIVEN RESP ISSUES, HAS RISK OF ASPIRATION IF RESP RATE ABOVE 25 BPM NO SIGNIFICANT CHANGE IN RESP RATE (AT BASELINE 20 BPM). GIVEN H/O CVA HAS SILENT ASP RISK AND HAS CRACKLES/RALES IN LUNGS AND POSSIBLE PNEUMONIA RECOMMENDATIONS: CONSIDER MOD BARIUM SWALLOW STUDY IP OR OP TO FURTHER ASSESS SWALLOW, DETERMINE SILENT ASPIRATION RISK, AND ATTEMPT TRIAL TX IF PO CONTINUES FOR QUALITY OF LIFE PURPOSES (AND SINCE PT WANTS PO), CONSIDER CONTINUING WITH REGULAR TEXTURE AND THIN LIQUIDS WITH POSTED ASPIRATION AND REFLUX PRECAUTIONS, SUPERVISION PRN. ON CARDIAC AND CCH0-MED NOW BUT AWAIT RD RECOMMENDATIONS ON DIET TYPE EDUCATED/TRAINED RNBARRY, IN POSTED ASPIRATION/REFLUX PRECAUTIONS SKILLED DYSPHAGIA MANAGEMENT AND TX AND EXPLORE NEED COG-COM EVAL/TX POST CVA AND SMOKING HX.
--- NOTE | 2019-09-30 12:30 | NUR ---
NURSE NOTES: The patient is stable without acute distress or shortness of breath. Reported chest ultrasound to Dr. De Leon for possible thoracentesis today. No response yet. Will continue plan of care. Addendum: 09/30/19 at 1252 by Vladimir Christine RN Call back from Dr. De Leon. Per Dr. De Leon, the patient's primary physician will be Dr. Bartlett. Notified Dr. Bartlett regarding chest ultrasound and awaiting for response regarding possible thoracentesis. Will continue plan of care.
--- NOTE | 2019-09-30 12:42 | Diagnostic Imaging Report ---
Indication:Elevated Bun and Creatinine. Technique: Grayscale and duplex Doppler imaging of the kidneys performed. Comparison: None Findings: Cortical echogenicity is abnormally increased within both kidneys. There are multiple cysts of varying size within both kidneys. The largest cyst in the left kidney as about 4 cm and on the right also about 4 cm.. The right kidney measures 10.8 cm. in length. The left kidney measures 10 cm. in length. The IVC is patent. Urinary bladder is distended. There is mild trabeculation of the bladder wall. Gallstone incidentally noted. Bilateral pleural effusions especially noted. IMPRESSION: Suspected medical renal disease. Multiple cysts. Distended urinary bladder. Chronic cystitis may be present. Gallstone Bilateral pleural effusion
--- NOTE | 2019-09-30 13:30 | NUR ---
NURSE NOTES: Dr. Bartlett asked result of chest x-ray and chest ultrasound. Notified the result. No new order yet. Thoracentesis on hold until clarification made with Dr. Bartlett. Will continue plan of care.
[2019-09-30 16:00] VITALS: BP 140/70
--- NOTE | 2019-09-30 16:00 | NUR ---
NURSE NOTES: The patient is stable without acute distress or shortness of breath. The patient is on 2L NC, and oxygen saturation within normal range. Will continue plan of care.
--- NOTE | 2019-09-30 16:28 | NUR ---
*-* NO INSURANCE INFORMATION IN THE BAR UNABL.E TO SEND CLINICALS OR REVIEWS *-*
--- NOTE | 2019-09-30 16:58 | Nephrology Progress Note ---
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 (6) CKD (chronic kidney disease) stage 3, GFR 30-59 ml/min (7) Diabetes Plan continue diuresis, acei or arb as long as K stable Subjective Constitutional: Reports: weakness HEENT: Reports: no symptoms Genitourinary: Reports: no symptoms Neurologic/Psychiatric: Reports: no symptoms Objective Objective Last 24 Hour Vital Signs Date Time Temp Pulse Resp B/P (MAP) Pulse Ox O2 Delivery O2 Flow Rate FiO2 09/30/19 16:00 Nasal Cannula 2.0 09/30/19 16:00 97.9 60 20 140/70 (93) 98 09/30/19 13:24 142/81 09/30/19 12:08 157/73 09/30/19 12:00 Nasal Cannula 2.0 09/30/19 12:00 63 09/30/19 12:00 97.7 61 20 157/73 (101) 99 09/30/19 08:10 61 148/64 09/30/19 08:10 61 148/64 09/30/19 08:09 148/64 09/30/19 08:00 60 09/30/19 08:00 98.4 61 20 148/64 (92) 97 09/30/19 08:00 Nasal Cannula 2.0 09/30/19 06:01 141/67 09/30/19 06:01 141/67 09/30/19 04:00 98.0 60 20 129/63 (85) 98 09/30/19 04:00 62 09/30/19 04:00 Nasal Cannula 2.0 09/30/19 00:00 Nasal Cannula 2.0 09/30/19 00:00 61 09/30/19 00:00 98.6 60 20 154/76 (102) 99 09/29/19 23:13 160/73 09/29/19 21:21 164/85 09/29/19 21:19 61 164/85 09/29/19 20:00 98.4 60 20 153/71 (98) 99 09/29/19 20:00 62 09/29/19 20:00 Nasal Cannula 2.0 09/29/19 17:35 61 159/73 09/29/19 17:35 159/73 Intake and Output 09/29/19 09/30/19 19:00 07:00 Output Total 700 ml Balance -700 ml Output Urine Total 700 ml Laboratory Tests 09/30/19 03:35: Sodium Level 142, Potassium Level 3.8, Chloride Level 106, Carbon Dioxide Level 29, Anion Gap 7, Blood Urea Nitrogen 47H, Creatinine 1.9H, Estimat Glomerular Filtration Rate 41.1, Glucose Level 184H, Calcium Level 8.7 09/30/19 06:00: Urine Random Total Protein 273H, Urine Creatinine 58.1 09/30/19 07:55: Prothrombin Time 11.1, Prothromb Time International Ratio 1.0, Activated Partial Thromboplast Time 28 Height (Feet): 6 Height (Inches): 0.00 Weight (Pounds): 139 General Appearance: no apparent distress EENT: normal ENT inspection Neck: normal alignment Cardiovascular: normal rate, regular rhythm Respiratory/Chest: lungs clear Abdomen: non tender, soft Extremities: no edema Neurologic: loss mitigation specialist II-XII grossly normal Gregory Naranjo MD Sep 30, 2019 16:58
--- NOTE | 2019-09-30 18:30 | NUR ---
NURSE NOTES: Clarification made with regarding primary physician for the patient. Per Dr. De Leon, the patient's primary physician will be Dr. Bartlett. No response from Dr. Bartlett regarding thoracentesis. The patient is stable without acute distress or shortness of breath. Will continue plan of care.
--- NOTE | 2019-09-30 19:20 | NUR ---
HAND-OFF: Report given to CARLOS Rodríguez. The patient is resting on the bed without acute distress or shortness of breath. The patient's bed in the lowest position, call light in reach, and fall and aspiration precaution reinforced. IV site intact and patent. 2L NC per order and saturation within normal range. Endorsed plan of care.
--- NOTE | 2019-09-30 19:21 | NUR ---
NURSE NOTES: received pt from Bhakti GONZALEZ., pt is awake and AOx3 forgetful. pt states no pain at this moment. pt is receiving 1.5L of NC and no SOB noted, O2sat is at 99%. Left hand IV 22G intact, clean, and patent. call light within reach. bed at the lowest position, alarmed and locked. will continue to monitor pt with plan of care.
[2019-09-30 20:00] VITALS: BP 147/74
--- NOTE | 2019-09-30 20:05 | NUR ---
HAND-OFF: Report given to Faina GONZALEZ., pt remains stable, endorsed plan of care.
[2019-09-30] MEDS ORDERED: DiphenhydrAMINE 25mg Tab ORAL PRN (20:24)
[2019-09-30] MEDS ORDERED: Lactulose 20gm/30ml UDC ORAL PRN (20:24)
[2019-09-30] MEDS ORDERED: guaiFENesin 100mg/5ml Liq ud ORAL PRN (20:24)
[2019-09-30] MEDS ORDERED: Albuterol/Ipratropium 3ml neb HHN PRN (20:24)
[2019-09-30] MEDS ORDERED: HYDROcodone/Acetamin 5/325 tab ORAL PRN (20:24)
[2019-09-30] MEDS ORDERED: Vitamin A&D Oint Tube TOPIC SCH (21:00)
--- NOTE | 2019-09-30 21:00 | NUR ---
NURSE NOTES: Received patient from SDU via hospital bed. Patient is resting in bed without acute distress or shortness of breath. No c/o pain at this time, blood sugar checked. The patient's bed in the lowest position, call light in reach, and fall and aspiration precaution reinforced. IV site intact and patent. The patient is on 1.5L NC and saturation within normal range.
[2019-09-30] MEDS: Vitamin A&D Oint Tube TOPIC SCH (21:15)
[2019-09-30] MEDS ORDERED: Nitroglycerin 2% oint pkt TOPIC SCH (22:00)
[2019-10-01] VITALS (7 sets, daily range): BP systolic 125–152; BP diastolic 58–80
[2019-10-01] MEDS: NovoLOG Insulin Flexpen SUBQ SCH ×3 (05:50→16:34)
--- NOTE | 2019-10-01 06:30 | Progress Note ---
DATE: 09/30/2019 CARDIOLOGY PROGRESS NOTE SUBJECTIVE: The patient had pacemaker-mediated tachycardia. Yesterday, the patient's device was interrogated and reprogrammed today namely his pacemaker. No chest pain and with minimal shortness of breath. PHYSICAL EXAMINATION: VITAL SIGNS: Blood pressure 148/64, pulse 61, respirations 20. LUNGS: Bilateral breath sounds. No wheezing. Diminished at bases. CARDIAC: Regular rhythm and rate. Normal S1, S2. ABDOMEN: Soft. EXTREMITIES: No edema. IMPRESSION: 1. Pacemaker. 2. Pacemaker-mediated tachycardia. 3. Paroxysmal atrial tachyarrhythmias. 4. Non ST-elevation myocardial infarction. 5. Pleural effusions. 6. Acute on chronic diastolic congestive heart failure. 7. Severe protein-calorie malnutrition. 8. Hypertensive heart disease. PLAN: 1. Transition from topical to oral nitrates. 2. Titrate and advance beta maggy. 3. Discontinue cardiac monitoring. 4. Cautious diuresis. 5. transition to oral therapy for discharge. 6. Monitor volume status and cardiorenal function closely. Johan Nguyen M.D. DR: KEV JOB#: [id number] CC:
[2019-10-01 06:44] LABS: ANION GAP 12 mmol/L (5-15); BLOOD UREA NITROGEN 47 mg/dL (7-18); CALCIUM 8.8 MG/DL (8.5-10.1); CARBON DIOXIDE 24 MMOL/L (21-32); CHLORIDE 108 MMOL/L (98-107); CREATININE 1.9 MG/DL (0.55-1.30); SODIUM 144 MMOL/L (136-145)
--- NOTE | 2019-10-01 07:38 | NUR ---
HAND-OFF: Report given to CARLOS Geronimo.
--- NOTE | 2019-10-01 07:38 | NUR ---
NURSE NOTES: Report received from Poonam GONZALEZ. Patient is awake and alert x 3. Patient currently sitting up right in bed eating breakfast. Noted to be on 1.5 liters of oxygen. Patient does not have SOB at this time, and is not in respiratory distress. Patient does not have complaints of chest pain at this time. Condom catheter noted draining clear yellow urine. 22 linda IV noted in left hand. Bed in lowest position and locked. Was endorsed that patient is weak and needs assistance with walking. patient will call, but will still provide frequent checks. BODY MAKER MACHINE SETTER aware, bed alarm on. Will continue to follow plan of care.
[2019-10-01] MEDS: Docusate 100mg cap ORAL SCH (08:17)
[2019-10-01] MEDS: Metoprolol Tartrate 50mg tab ORAL SCH ×2 (08:18→20:06)
[2019-10-01] MEDS: Heparin 5000 units/ml inj SUBQ SCH (08:20)
[2019-10-01] MEDS ORDERED: Aspirin Baby 81mg ORAL SCH (09:00)
[2019-10-01] MEDS ORDERED: Irbesartan 150mg tablet ORAL SCH (09:00)
[2019-10-01] MEDS ORDERED: Imdur 30mg tab ORAL SCH (09:00)
--- NOTE | 2019-10-01 09:06 | Pulmonology Progress Note ---
Assessment/Plan Assessment/Plan IMPRESSION: 1. Congestive heart failure. 2. Pleural effusion. bilateral 3. Mild leukocytosis. 4. Anemia. 5. Chronic kidney disease. 6. Elevated troponin. 7. Possible non-STEMI. 8. Elevated natriuretic peptide. 9. Severe protein-calorie malnutrition. PLAN stable nontoxic dc home rx given impression, plan, and exam edited and reviewed in detail care discussed with RN Subjective Allergies: Coded Allergies: No Known Allergies (Unverified , 09/28/19) Subjective all care reviewed and discussed comfortable overnight no chest pain no sob US overall negative Objective Last 24 Hour Vital Signs Date Time Temp Pulse Resp B/P (MAP) Pulse Ox O2 Delivery O2 Flow Rate FiO2 10/01/19 08:18 61 152/61 10/01/19 08:17 152/61 10/01/19 08:17 152/61 10/01/19 08:16 61 152/61 10/01/19 07:29 64 16 97 Nasal Cannula 2.0 28 10/01/19 07:29 97 Nasal Cannula 2.0 28 10/01/19 05:30 139/80 10/01/19 04:00 98.1 70 18 139/80 (99) 95 10/01/19 02:01 98.3 10/01/19 00:16 141/71 10/01/19 00:00 98.3 63 20 144/70 (94) 95 09/30/19 22:30 141/71 09/30/19 21:55 Nasal Cannula 1.5 09/30/19 21:48 60 18 98 Nasal Cannula 2.0 28 09/30/19 20:46 60 141/71 09/30/19 20:00 98 Nasal Cannula 2.0 28 09/30/19 20:00 98.3 60 20 147/74 (98) 98 09/30/19 17:33 60 141/71 09/30/19 17:33 141/71 09/30/19 16:00 Nasal Cannula 2.0 09/30/19 16:00 60 09/30/19 16:00 97.9 60 20 140/70 (93) 98 09/30/19 13:24 142/81 09/30/19 12:08 157/73 09/30/19 12:00 Nasal Cannula 2.0 09/30/19 12:00 63 09/30/19 12:00 97.7 61 20 157/73 (101) 99 Intake and Output 09/30/19 10/01/19 19:00 07:00 Intake Total 2000 ml Output Total 2300 ml Balance -300 ml Intake Oral 2000 ml Output Urine Total 2300 ml Objective GENERAL: A well-developed male, comfortable, advanced age. HEENT: Negative. Extraocular movements are grossly intact. NECK: Supple. LUNGS: Moderate breath sounds, reduced at both bases. no rhonchi or wheeze CARDIAC: S1 and S2. Regular rate and rhythm. Slightly distant. Positive S4. ABDOMEN: Soft, nontender, and nondistended. EXTREMITIES: Mild edema. NEUROLOGIC: nonfocal Microbiology Date/Time Source Procedure Growth Status 09/28/19 15:00 Nasal Nares MRSA Culture - Final NO METHICILLIN RESISTANT STAPH AUREUS... Complete 09/28/19 15:00 Urine,Clean Catch Urine Culture - Final Mixed Gram Positive Organism Complete 09/28/19 15:00 Rectum VRE Culture - Final Enterococcus Faecium - Vre Complete 09/28/19 15:00 Rectum - Final NO CARBAPENEM-RESISTANT ENTEROBACTERI... Complete Laboratory Tests 10/01/19 05:15: Sodium Level 144, Potassium Level 4.0, Chloride Level 108H, Carbon Dioxide Level 24, Anion Gap 12, Blood Urea Nitrogen 47H, Creatinine 1.9H, Estimat Glomerular Filtration Rate 41.1, Glucose Level 111H, Calcium Level 8.8 Current Medications Medications (Trade) Dose Ordered Sig/Edis Route PRN Reason Start Time Stop Time Status Last Admin Dose Admin Acetaminophen (Tylenol) 650 mg Q4H PRN ORAL Mild Pain (Pain Scale 1-3) 09/30/19 20:22 10/28/19 20:21 10/01/19 01:31 Acetaminophen (Tylenol) 650 mg Q6H PRN ORAL temperature >100.4 F 09/30/19 20:23 10/30/19 20:22 Acetaminophen/ Hydrocodone Bitart ([place] 5/325) 1 tab Q4H PRN ORAL For Pain 09/30/19 20:24 10/05/19 20:23 Albuterol/ Ipratropium (Albuterol/ Ipratropium) 3 ml Q6H PRN HHN Shortness of Breath 09/30/19 20:24 10/05/19 20:23 Amlodipine Besylate (Norvasc) 5 mg BID ORAL 10/01/19 09:00 10/29/19 17:59 10/01/19 08:16 Aspirin (ASA) 81 mg DAILY ORAL 10/01/19 09:00 10/29/19 08:59 10/01/19 08:16 Ceftriaxone Sodium 1 gm/ Dextrose 55 ml @ 110 mls/hr Q24H IVPB 10/01/19 12:00 10/06/19 11:59 Clonidine HCl (Catapres Tab) 0.1 mg EVERY 6 HOURS ORAL 10/01/19 00:00 10/28/19 17:59 10/01/19 05:30 Dextrose (Dextrose 50%) 25 ml Q30M PRN IV Hypoglycemia 09/30/19 20:23 10/28/19 20:22 Dextrose (Dextrose 50%) 50 ml Q30M PRN IV Hypoglycemia 09/30/19 20:23 10/28/19 20:22 Diphenhydramine HCl (Benadryl) 25 mg Q4H PRN ORAL Itching 09/30/19 20:24 10/28/19 20:23 Docusate Sodium (Colace) 100 mg EVERY 12 HOURS ORAL 09/30/19 21:00 10/28/19 17:59 10/01/19 08:17 Ferrous Sulfate (Feosol) 325 mg DAILY ORAL 10/01/19 09:00 10/29/19 08:59 10/01/19 08:18 Furosemide (Lasix) 40 mg DAILY IV 10/01/19 09:00 10/29/19 08:59 10/01/19 08:18 Guaifenesin (Robitussin) 200 mg Q4H PRN ORAL FOR COUGH 09/30/19 20:24 10/28/19 20:23 Heparin Sodium (Porcine) (Heparin 5000 units/ml) 5,000 units EVERY 12 HOURS SUBQ 09/30/19 21:00 10/28/19 20:59 10/01/19 08:20 Insulin Aspart (NovoLOG) BEFORE MEALS AND HS SUBQ 09/30/19 21:00 10/29/19 06:29 09/30/19 20:49 Irbesartan (Avapro) 150 mg DAILY ORAL 10/01/19 09:00 10/29/19 14:59 10/01/19 08:17 Isosorbide Mononitrate (Imdur) 30 mg DAILY ORAL 10/01/19 09:00 10/31/19 08:59 10/01/19 08:17 Lactulose (Cephulac) 20 gm Q6H PRN ORAL Constipation 09/30/19 20:24 10/30/19 20:23 Metoprolol Tartrate (Lopressor) 50 mg Q12HR ORAL 10/01/19 09:00 10/31/19 08:59 10/01/19 08:18 Ondansetron HCl (Zofran) 4 mg Q6H PRN ORAL Nausea & Vomiting 09/30/19 20:24 10/30/19 20:23 Pantoprazole (Protonix) 40 mg DAILY ORAL 10/01/19 09:00 10/29/19 08:59 10/01/19 08:16 Vitamin A/Vitamin D (A & D Oint) 1 applic BEDTIME TOPIC 09/30/19 21:00 10/28/19 20:59 09/30/19 21:16 Jarod Bartlett MD Oct 01, 2019 09:06
--- NOTE | 2019-10-01 09:50 | NUR ---
NURSE NOTES: Patient to be discharged back to [facility] today per Doctor Dhruv. Attempted to contact Dottie and Inés in case management. No answer. Awaiting call back.
--- NOTE | 2019-10-01 10:30 | Infectious Diseases Prog Note ---
Assessment/Plan Assessment/Plan antibiotics : ceftriaxone A 1. pneumonia 2. renal failure 3. diabetes mellitus 4. hypertension 5. COPD 6. pleural effusion 7. CHF P 1. d/c ceftriaxone 2. start and continue po doxycycline 4 more days 3. will follow up cultures Subjective ROS Limited/Unobtainable: Yes Allergies: Coded Allergies: No Known Allergies (Unverified , 09/28/19) Objective Vital Signs Last 24 Hour Vital Signs Date Time Temp Pulse Resp B/P (MAP) Pulse Ox O2 Delivery O2 Flow Rate FiO2 10/01/19 09:00 Nasal Cannula 1.5 10/01/19 08:18 61 152/61 10/01/19 08:17 152/61 10/01/19 08:17 152/61 10/01/19 08:16 61 152/61 10/01/19 08:00 97.7 61 18 152/61 (91) 99 10/01/19 07:29 64 16 97 Nasal Cannula 2.0 28 10/01/19 07:29 97 Nasal Cannula 2.0 28 10/01/19 05:30 139/80 10/01/19 04:00 98.1 70 18 139/80 (99) 95 10/01/19 02:01 98.3 10/01/19 00:16 141/71 10/01/19 00:00 98.3 63 20 144/70 (94) 95 09/30/19 22:30 141/71 09/30/19 21:55 Nasal Cannula 1.5 09/30/19 21:48 60 18 98 Nasal Cannula 2.0 28 09/30/19 20:46 60 141/71 09/30/19 20:00 98 Nasal Cannula 2.0 28 09/30/19 20:00 98.3 60 20 147/74 (98) 98 09/30/19 17:33 60 141/71 09/30/19 17:33 141/71 09/30/19 16:00 Nasal Cannula 2.0 09/30/19 16:00 60 09/30/19 16:00 97.9 60 20 140/70 (93) 98 09/30/19 13:24 142/81 09/30/19 12:08 157/73 09/30/19 12:00 Nasal Cannula 2.0 09/30/19 12:00 63 09/30/19 12:00 97.7 61 20 157/73 (101) 99 Height (Feet): 6 Height (Inches): 0.00 Weight (Pounds): 139 Respiratory/Chest: lungs clear Cardiovascular: normal rate, regular rhythm, no gallop/murmur Abdomen: soft, non tender Extremities: no edema Microbiology Date/Time Source Procedure Growth Status 09/28/19 15:00 Nasal Nares MRSA Culture - Final NO METHICILLIN RESISTANT STAPH AUREUS... Complete 09/28/19 15:00 Urine,Clean Catch Urine Culture - Final Mixed Gram Positive Organism Complete 09/28/19 15:00 Rectum VRE Culture - Final Enterococcus Faecium - Vre Complete 09/28/19 15:00 Rectum - Final NO CARBAPENEM-RESISTANT ENTEROBACTERI... Complete Laboratory Tests Test 10/01/19 05:15 Sodium Level 144 MMOL/L (136-145) Potassium Level 4.0 MMOL/L (3.5-5.1) Chloride Level 108 MMOL/L (98-107) H Carbon Dioxide Level 24 MMOL/L (21-32) Anion Gap 12 mmol/L (5-15) Blood Urea Nitrogen 47 mg/dL (7-18) H Creatinine 1.9 MG/DL (0.55-1.30) H Estimat Glomerular Filtration Rate 41.1 mL/min (>60) Glucose Level 111 MG/DL (74-106) H Calcium Level 8.8 MG/DL (8.5-10.1) Current Medications Medications (Trade) Dose Ordered Sig/Edis Route PRN Reason Start Time Stop Time Status Last Admin Dose Admin Acetaminophen (Tylenol) 650 mg Q4H PRN ORAL Mild Pain (Pain Scale 1-3) 09/30/19 20:22 10/28/19 20:21 10/01/19 01:31 Acetaminophen (Tylenol) 650 mg Q6H PRN ORAL temperature >100.4 F 09/30/19 20:23 10/30/19 20:22 Acetaminophen/ Hydrocodone Bitart ([place] 5/325) 1 tab Q4H PRN ORAL For Pain 09/30/19 20:24 10/05/19 20:23 Albuterol/ Ipratropium (Albuterol/ Ipratropium) 3 ml Q6H PRN HHN Shortness of Breath 09/30/19 20:24 3/7/20 20:23 Amlodipine Besylate (Norvasc) 5 mg BID ORAL 10/01/19 09:00 10/29/19 17:59 10/01/19 08:16 Aspirin (ASA) 81 mg DAILY ORAL 10/01/19 09:00 10/29/19 08:59 10/01/19 08:16 Ceftriaxone Sodium 1 gm/ Dextrose 55 ml @ 110 mls/hr Q24H IVPB 10/01/19 12:00 10/06/19 11:59 Clonidine HCl (Catapres Tab) 0.1 mg EVERY 6 HOURS ORAL 10/01/19 00:00 10/28/19 17:59 10/01/19 05:30 Dextrose (Dextrose 50%) 25 ml Q30M PRN IV Hypoglycemia 09/30/19 20:23 10/28/19 20:22 Dextrose (Dextrose 50%) 50 ml Q30M PRN IV Hypoglycemia 09/30/19 20:23 10/28/19 20:22 Diphenhydramine HCl (Benadryl) 25 mg Q4H PRN ORAL Itching 09/30/19 20:24 10/28/19 20:23 Docusate Sodium (Colace) 100 mg EVERY 12 HOURS ORAL 09/30/19 21:00 10/28/19 17:59 10/01/19 08:17 Ferrous Sulfate (Feosol) 325 mg DAILY ORAL 10/01/19 09:00 10/29/19 08:59 10/01/19 08:18 Furosemide (Lasix) 40 mg DAILY IV 10/01/19 09:00 10/29/19 08:59 10/01/19 08:18 Guaifenesin (Robitussin) 200 mg Q4H PRN ORAL FOR COUGH 09/30/19 20:24 10/28/19 20:23 Heparin Sodium (Porcine) (Heparin 5000 units/ml) 5,000 units EVERY 12 HOURS SUBQ 09/30/19 21:00 10/28/19 20:59 10/01/19 08:20 Insulin Aspart (NovoLOG) BEFORE MEALS AND HS SUBQ 09/30/19 21:00 10/29/19 06:29 09/30/19 20:49 Irbesartan (Avapro) 150 mg DAILY ORAL 10/01/19 09:00 10/29/19 14:59 10/01/19 08:17 Isosorbide Mononitrate (Imdur) 30 mg DAILY ORAL 10/01/19 09:00 10/31/19 08:59 10/01/19 08:17 Lactulose (Cephulac) 20 gm Q6H PRN ORAL Constipation 09/30/19 20:24 10/30/19 20:23 Metoprolol Tartrate (Lopressor) 50 mg Q12HR ORAL 10/01/19 09:00 10/31/19 08:59 10/01/19 08:18 Ondansetron HCl (Zofran) 4 mg Q6H PRN ORAL Nausea & Vomiting 09/30/19 20:24 10/30/19 20:23 Pantoprazole (Protonix) 40 mg DAILY ORAL 10/01/19 09:00 10/29/19 08:59 10/01/19 08:16 Vitamin A/Vitamin D (A & D Oint) 1 applic BEDTIME TOPIC 09/30/19 21:00 10/28/19 20:59 09/30/19 21:16 Dann Kingsley MD Oct 01, 2019 10:30
[2019-10-01] MEDS ORDERED: ASPIR 8181 MG ORAL ×2 (10:59→11:02)
[2019-10-01] MEDS ORDERED: AVAPRO150 MG ORAL (11:00)
[2019-10-01] MEDS ORDERED: PANTOPRAZOLE SO40 MG ORAL (11:01)
--- NOTE | 2019-10-01 11:24 | NUR ---
NURSE NOTES: Paged Doctor Sancho regarding discharge. Awaiting call back.
[2019-10-01] MEDS ORDERED: DOXYCYCLINE MO100 MG ORAL ×2 (11:34→11:35)
[2019-10-01] MEDS: Doxycycline Monohydrate 100mg ORAL SCH ×2 (11:38→20:06)
[2019-10-01] MEDS ORDERED: cefTRIAXone 1 GM in D5W 55 ML IVPB SCH (12:00)
--- NOTE | 2019-10-01 13:00 | NUR ---
NURSE NOTES: Attempted to contact Dottie from Case management again regarding discharge. No answer. Called and left message with Ysabel from case management. Awaiting call back.
--- NOTE | 2019-10-01 13:56 | NUR ---
DISCHARGE SWALLOW / SPEECH THERAPY SUMMARY: PATIENT SEEN FOR DYSPHAGIA, SEE SWALLOWING EVALUATION. GOALS MET FOR INTAKE ON REGULAR TEXTURE DIET AND THIN LIQUIDS W/O OVERT ASPIRATION. UNABLE TO HAVE MODIFIED BARUIM SWALLOW STUDY TO FURTHER ASSESS SWALLOW, DETERMINE SILENT ASPIRATION RISK, AND ATTEMPT TRIAL TX TECHNIQUES. GOALS MET FOR NEW STAFF EDUCATED/TRAINED IN POSTED ASPIRATION AND REFLUX PRECAUTIONS. PLAN: F/UP WITH MOD BARIUM SWALLOW STUDY OUTPATIENT AND SKILLED DYSPHAGIA MANAGEMENT AND TX AT D/C SETTING. D/W PATIENT AND STAFF
--- NOTE | 2019-10-01 14:01 | NUR ---
CASE MANAGEMENT: INITIAL REVIEW 84YR OLD MALE BIBA FROM [facility] CC:DYSPNEA / RESP. DISTRESS SI:CHF . CARDIAC ASTHMA . RENAL INSUFFICIENCY . ELEVATED TROP 97.5 76 18 194/72 97% ON RA (TROP 0.151 -0.205 -0.271) WBC 12.4 H/H 10.5/31.9 CL-109 BUN 42 CREAT 1.9 BNP 01288 IS:NITRO-BID TP X1 IV LASIX X2 NTG SL X1 ASA PO X1 NORVASC PO BID CHEST X-RAY - Right greater than left pleural effusions VENOUS DUPLEX JOSE DE JESUS -NEGATIVE \: 4E MED SURG UNIT DCP: [facility] WHEN STABLE CASE MANAGEMENT: REVIEW 09/29/19 SI:CHF . CARDIAC ASTHMA . RENAL INSUFFICIENCY . ELEVATED TROP 98.2 60 20 155/68 100% ON 2L NC (TROP 0.271-0.257) BG 204 BUN 48 CREAT 2.1 BNP 21978 IS:IV DOXYCYCLINE BID IV LASIX QD LOPRESSOR PO BID AVAPRO PO QD NORVASC PO BID PROTONIX PO QD HEPARIN SQ BID NOVOLOG SQ AC&HS FEOSOL PO QD TYLENOL PO Q4HR/PRN \: 4E MED SURG UNIT DCP: [facility] WHEN STABLE PLAN: +VRE RENAL US CHEST US CASE MANAGEMENT: REVIEW 09/30/19 SI:CHF . CARDIAC ASTHMA . RENAL INSUFFICIENCY . ELEVATED TROP 98.4 60 20 148/64 97% ON 2L NC BG 184 BUN 47 CREAT 1.9 IS:IV DOXYCYCLINE BID IV LASIX QD LOPRESSOR PO BID AVAPRO PO QD NORVASC PO BID PROTONIX PO QD HEPARIN SQ BID NOVOLOG SQ AC&HS FEOSOL PO QD TYLENOL PO Q4HR/PRN RENAL US- [place] US CHEST -Bilateral pleural effusion \: 4E MED SURG UNIT DCP: CVN WHEN STABLE PLAN: +VRE CASE MANAGEMENT: REVIEW 10/01/19 SI:PNA . CHF . CARDIAC ASTHMA . RENAL FAILURE 97.5 62 19 125/61 96% ON 1.5L NC BG 111 BUN 47 CREAT 1.9 IS:IV DOXYCYCLINE BID IV LASIX QD LOPRESSOR PO BID AVAPRO PO QD NORVASC PO BID PROTONIX PO QD HEPARIN SQ BID NOVOLOG SQ AC&HS FEOSOL PO QD TYLENOL PO Q4HR/PRN \: 4E MED SURG UNIT DCP: CVN WHEN STABLE PLAN: DC TO [facility]
--- NOTE | 2019-10-01 14:42 | NUR ---
discharge planning: clinicals sent to HCP for review and authorization for snf placement f:[phone] HCP will call back with authorization after review
--- NOTE | 2019-10-01 15:41 | General Progress Note ---
Assessment/Plan Problem List: (1) Diabetes ICD Codes: E11.9 - Type 2 diabetes mellitus without complications SNOMED: 66685509 (2) Cardiac asthma ICD Codes: I50.1 - Left ventricular failure, unspecified SNOMED: 09966547 (3) Renal insufficiency ICD Codes: N28.9 - Disorder of kidney and ureter, unspecified SNOMED: 168671925, 180511191 (4) Congestive heart failure ICD Codes: I50.9 - Heart failure, unspecified SNOMED: 86343313 Qualifiers: Qualified Codes: I50.23 - Acute on chronic systolic (congestive) heart failure (5) Elevated troponin ICD Codes: R79.89 - Other specified abnormal findings of blood chemistry SNOMED: 653508775, 478407938, 238577252 Status: stable Assessment/Plan: o2 resp care antiplt rx trend trop a1c well controlled renal us monitor labs dvt/stress ulcer prophylaxis dc planning Subjective ROS Limited/Unobtainable: No Constitutional: Reports: malaise, weakness HEENT: Reports: no symptoms Cardiovascular: Reports: no symptoms Respiratory: Reports: shortness of breath Gastrointestinal/Abdominal: Reports: no symptoms Genitourinary: Reports: no symptoms Neurologic/Psychiatric: Reports: no symptoms Endocrine: Reports: no symptoms Hematologic/Lymphatic: Reports: no symptoms Allergies: Coded Allergies: No Known Allergies (Unverified , 09/28/19) All Systems: reviewed and negative except above Subjective no complaints.overall improved. close to baseline. less sob. no fever or chills. labs reviewed. meds noted. Cr stable. Objective Last 24 Hour Vital Signs Date Time Temp Pulse Resp B/P (MAP) Pulse Ox O2 Delivery O2 Flow Rate FiO2 10/01/19 12:00 97.5 62 19 125/61 (82) 96 10/01/19 11:41 Nasal Cannula 1.5 10/01/19 11:38 128/60 10/01/19 09:00 Nasal Cannula 1.5 10/01/19 08:18 61 152/61 10/01/19 08:17 152/61 10/01/19 08:17 152/61 10/01/19 08:16 61 152/61 10/01/19 08:00 97.7 61 18 152/61 (91) 99 10/01/19 07:29 64 16 97 Nasal Cannula 2.0 28 10/01/19 07:29 97 Nasal Cannula 2.0 28 10/01/19 05:30 139/80 10/01/19 04:00 98.1 70 18 139/80 (99) 95 10/01/19 02:01 98.3 10/01/19 00:16 141/71 10/01/19 00:00 98.3 63 20 144/70 (94) 95 09/30/19 22:30 141/71 09/30/19 21:55 Nasal Cannula 1.5 09/30/19 21:48 60 18 98 Nasal Cannula 2.0 28 09/30/19 20:46 60 141/71 09/30/19 20:00 98 Nasal Cannula 2.0 28 09/30/19 20:00 98.3 60 20 147/74 (98) 98 09/30/19 17:33 60 141/71 09/30/19 17:33 141/71 09/30/19 16:00 Nasal Cannula 2.0 09/30/19 16:00 60 09/30/19 16:00 97.9 60 20 140/70 (93) 98 Intake and Output 09/30/19 10/01/19 19:00 07:00 Intake Total 2000 ml Output Total 2300 ml Balance -300 ml Intake Oral 2000 ml Output Urine Total 2300 ml Laboratory Tests 10/01/19 05:15: Sodium Level 144, Potassium Level 4.0, Chloride Level 108H, Carbon Dioxide Level 24, Anion Gap 12, Blood Urea Nitrogen 47H, Creatinine 1.9H, Estimat Glomerular Filtration Rate 41.1, Glucose Level 111H, Calcium Level 8.8 Height (Feet): 6 Height (Inches): 0.00 Weight (Pounds): 139 Objective General Appearance: WD/WN, alert Neck: non-tender, normal alignment, supple Cardiovascular: normal rate, regular rhythm Respiratory/Chest: chest wall non-tender, lungs clear, normal breath sounds, no respiratory distress, no accessory muscle use Abdomen: normal bowel sounds, non tender, soft, no organomegaly Edema: no edema noted Arm (L), no edema noted Arm (R), no edema noted Leg (L), no edema noted Leg (R), no edema noted Pedal (L), no edema noted Pedal (R), no edema noted Generalized 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
--- NOTE | 2019-10-01 18:03 | Nephrology Progress Note ---
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 (6) CKD (chronic kidney disease) stage 3, GFR 30-59 ml/min (7) Diabetes (8) Nephrotic syndrome Plan continue diuresis, acei or arb as long as K stable Subjective Constitutional: Reports: weakness HEENT: Reports: no symptoms Genitourinary: Reports: no symptoms Neurologic/Psychiatric: Reports: no symptoms Objective Objective Last 24 Hour Vital Signs Date Time Temp Pulse Resp B/P (MAP) Pulse Ox O2 Delivery O2 Flow Rate FiO2 10/01/19 17:12 82 130/58 10/01/19 17:09 130/58 10/01/19 16:00 97.9 82 16 130/58 (82) 98 10/01/19 12:00 97.5 62 19 125/61 (82) 96 10/01/19 11:41 Nasal Cannula 1.5 10/01/19 11:38 128/60 10/01/19 09:00 Nasal Cannula 1.5 10/01/19 08:18 61 152/61 10/01/19 08:17 152/61 10/01/19 08:17 152/61 10/01/19 08:16 61 152/61 10/01/19 08:00 97.7 61 18 152/61 (91) 99 10/01/19 07:29 64 16 97 Nasal Cannula 2.0 28 10/01/19 07:29 97 Nasal Cannula 2.0 28 10/01/19 05:30 139/80 10/01/19 04:00 98.1 70 18 139/80 (99) 95 10/01/19 02:01 98.3 10/01/19 00:16 141/71 10/01/19 00:00 98.3 63 20 144/70 (94) 95 09/30/19 22:30 141/71 09/30/19 21:55 Nasal Cannula 1.5 09/30/19 21:48 60 18 98 Nasal Cannula 2.0 28 09/30/19 20:46 60 141/71 09/30/19 20:00 98 Nasal Cannula 2.0 28 09/30/19 20:00 98.3 60 20 147/74 (98) 98 Intake and Output 09/30/19 10/01/19 19:00 07:00 Intake Total 2000 ml Output Total 2300 ml Balance -300 ml Intake Oral 2000 ml Output Urine Total 2300 ml Laboratory Tests 10/01/19 05:15: Sodium Level 144, Potassium Level 4.0, Chloride Level 108H, Carbon Dioxide Level 24, Anion Gap 12, Blood Urea Nitrogen 47H, Creatinine 1.9H, Estimat Glomerular Filtration Rate 41.1, Glucose Level 111H, Calcium Level 8.8 Height (Feet): 6 Height (Inches): 0.00 Weight (Pounds): 139 General Appearance: no apparent distress, alert EENT: normal ENT inspection Neck: normal alignment Cardiovascular: normal rate Respiratory/Chest: lungs clear Abdomen: non tender Extremities: no edema Neurologic: tobacco sorter II-XII grossly normal Gregory Naranjo MD Oct 01, 2019 18:03
--- NOTE | 2019-10-01 19:06 | NUR ---
HAND-OFF: Report given to Poonam GONZALEZ. Patient in stable condition. Endorsed that patient is to be discharged tonight. Endorsed that discharge packet is done. Endorsed to Poonam GONZALEZ that once insurance calls, she is to call and give report to Steffany Diehl.
--- NOTE | 2019-10-01 22:39 | NUR ---
NURSE NOTES: Patient returned to [facility] via ambulance. Report given to Brant. VSS. Insulin coverage given before discharge. IV discontinued, hospital bracelet taken off. Patient left unit without incident.
--- NOTE | 2019-10-02 04:15 | Progress Note ---
DATE: 10/01/2019 CARDIOLOGY PROGRESS NOTE SUBJECTIVE: The patient denies any recurring chest pain or shortness of breath. He is tolerating diet. Pacemaker was interrogated and reprogrammed 2 days ago yesterday for pacemaker mediated tachycardia. OBJECTIVE: VITAL SIGNS: Blood pressure 125/61, pulse 62, and respirations 19. LUNGS: Coarse breath sounds. No wheezing. CARDIAC: Regular rhythm and rate. Normal S1 and S2. A 1/6 systolic murmur at apex. ABDOMEN: Soft. EXTREMITIES: No edema. IMPRESSION: 1. Pby-[id number] myocardial infarction. 2. Paroxysmal supraventricular tachyarrhythmias. 3. Acute on chronic diastolic congestive heart failure. 4. Pacemaker with pacemaker mediated tachycardia, resolved. 5. Pleural effusions, asymptomatic now. 6. Severe protein-calorie malnutrition, on supplements. 7. Hypertensive heart disease with controlled blood pressure. PLAN: 1. Medical management. 2. Cardiovascular regimen was adjusted and titrated. Discussed with the primary physician for transfer back to the half-way facility. 3. Outpatient pacemaker interrogation to be arranged. 4. Maintenance diuretic regimen in oral form on board now. Jasmeet Burks JOB#: [id number] CC:
--- NOTE | 2019-10-02 13:58 | NUR ---
DISCHARGE NOTE: VRE COLONIZED FAXED COPY TO [facility] SPOKE TO JOYCELYN FROM HCP [phone] TO INFORM HER OF REQUESTED AND INFORMED HER FAXED WAS RECEIVED BY [facility]
--- NOTE | 2019-10-03 09:24 | Discharge Summary ---
Discharge Summary Discharge Summary _ DATE OF ADMISSION: 09/28/2019 DATE OF DISCHARGE: 10/01/2019 DISCHARGED BY: Dr. Bartlett REASON FOR ADMISSION: 84 years old male with past medical history of heart failure, CVA, pacemaker, COPD, diabetes mellitus, resident of [facility] facility, was sent for evaluation due to shortness of breath. Vital signs reveal elevated blood pressure 194/72, pulse oximetry was 88% on room air. Patient reported recent pacemaker placement and recent history of stroke. Patient denied chest pain. Laboratory work-up revealed mild leukocytosis WBC 12.4, hemoglobin 10.5 , hematocrit 31.9 ,platelet count 187. Stable electrolytes. BUN 42, creatinine 1.9. Glucose 140. Troponin elevated - 0.151. pro BNP 92094. EKG revealed sinus rhythm with first-degree AV block and nonspecific ST-T wave changes. Urinalysis revealed no evidence of urinary tract infection. Chest x-ray demonstrated right greater than left pleural effusion. Bibasilar atelectasis versus pneumonia. Pulmonary vascular congestion and edema. Patient received two nebulizing treatment with albuterol and antiplatelet therapy with aspirin. Patient started on supplemental oxygen and admitted to stepdown unit for further management CONSULTANTS: stem assembler internal medicine Dr. Russ ID specialist Dr. Kingsley transportation project manager Dr. Naranjo HOSPITAL COURSE: Patient admitted to stepdown unit. Serial troponin were monitored. Conservative medical management of NSTEMI provided with antiplatelet therapy and beta blockade. Echocardiogram demonstrated mild left ventricular hypertrophy with ejection fraction 45 to 50% per preliminary report. Right ventricular systolic pressure of 72 consistent with severe pulmonary hypertension. Significant left ventricular diastolic dysfunction grade 2. Patient started on diuresis with close monitoring of volumes and cardiorenal parameters. Venous duplex bilateral lower extremity revealed no evidence of acute DVT. DVT prophylaxis provided. Antihypertensive regimen was optimized as per stem assembler. Blood pressure stabilized , and prior to discharge 130/68. Supplemental oxygen provided and titrated to keep oximetry above 92% , nebulizing treatment with bronchodilator provided. Pulse oximetry was stable on nasal cannula 1.5 L. Ultrasound of the chest revealed only trace of the right pleural effusion; no fluid to tap. Renal ultrasound demonstrated suspected medical renal disease; gallstones. Nephrotoxins were avoided. Renal parameters and electrolytes were closely monitored, electrolytes corrected as needed. Creatinine remained at baseline. Total random urine protein 273. Tissue Specialist cleared to continue GANGA/ARB as long as potassium stable. Urine culture revealed mixed gram positive organisms. Patient remained afebrile. Patient was treated for pneumonia with IV antibiotic while in the hospital and changed to oral upon discharge to complete the course. Blood sugar was closely monitored and managed with sliding scale of insulin as needed. Blood sugar remained stable. Hemoglobin A1c 6.5. Protein supplements provided as per advanced practice registered nurse recommendation. GI prophylaxis provided. Bowel regimen instituted. Patient clinically stabilized and was ready for transfer back to [facility] for continuation of care Per stem assembler arrange outpatient interrogation of pacemaker. Maintain diuretic regimen oral form with close monitoring of volumes and cardiorenal parameters FINAL DIAGNOSES: NSTEMI Acute on chronic diastolic congestive heart failure Pneumonia Permanent pacemaker with pacemaker mediated tachycardia -resolved Paroxysmal supraventricular tachyarrhythmia Anemia of chronic kidney disease Chronic kidney disease stage 3 Diabetic nephropathy Nephrotic syndrome Hypertensive heart disease COPD Pleural effusion Prostate CA Proteinuria Severe protein calorie malnutrition DISCHARGE MEDICATIONS: See Medication Reconciliation list. DISCHARGE INSTRUCTIONS: Patient was discharged to the [facility] facility. Follow up with medical doctor at the facility. I have been assigned to dictate discharge summary for this account. I was not involved in the patient's management. Jennifer Santos NP Oct 03, 2019 09:24
== END 2019-10-01 22:15 | DRG 280 ==
LOC: EDBD 08:18 → EMR 08:44 → EDBEDREQ 09:23 → EDBEDREQSVC 09:23 → EDBEDREQ 10:16 → 2W 10:34 → 4E 09-30 20:09
DX: I21.4 Non-ST elevation (NSTEMI) myocardial infarction (principal); I50.43 Acute on chronic combined systolic (congestive) and diastolic (congestive) heart failure; E43 Unspecified severe protein-calorie malnutrition; J18.9 Pneumonia, unspecified organism; I13.0 Hypertensive heart and chronic kidney disease with heart failure and stage 1 through stage 4 chronic kidney disease, or unspecified chronic kidney disease; I47.1 Supraventricular tachycardia; J44.1 Chronic obstructive pulmonary disease with (acute) exacerbation; Z95.0 Presence of cardiac pacemaker; Z86.73 Personal history of transient ischemic attack (TIA), and cerebral infarction without residual deficits; E11.22 Type 2 diabetes mellitus with diabetic chronic kidney disease; N18.3 Chronic kidney disease, stage 3 (moderate); Z85.46 Personal history of malignant neoplasm of prostate; Z87.891 Personal history of nicotine dependence; I25.2 Old myocardial infarction
CPT/HCPCS: 36415; 71045; 76604; 76770; 80048; 80053; 80061; 81003; 82044; 82550; 82570; 82962; 83036; 83880; 84443; 84484; 85025; 85610; 85730; 87081; 87086; 93005; 93306; 93970; 94664; 96374; 99291; J1815